=== PATIENT | female | born 1940 | race Caucasian/White ===

== ENCOUNTER 2017-01-09 15:44 | Inpatient (IN) | payer MEDICARE, OTHER ==
[2017-01-09] MEDS ORDERED: Ondansetron INJ* 2 MG/ML VIAL IV ONE ×2 (16:39→18:42)
[2017-01-09] MEDS ORDERED: Pantoprazole IV* 40 MG IV ONE (16:39)
[2017-01-09] MEDS: NS 0.9% 1000 ML* 2,000 ML IV ONE ×2 (16:57→18:38)
[2017-01-09 17:15] LABS: Hematocrit 43 % (35-47); Hemoglobin 14.2 g/dl (12.0-16.0); Mean Corpuscular HGB Conc 33 g/dl (31-36); Mean Corpuscular Hemoglobin 30 pg (27-31); Mean Corpuscular Volume 93 fL (80-97); Mean Platelet Volume 10 um3 (7.4-10.4); Red Blood Count 4.65 10^6/ul (4.0-5.4); Red Cell Distribution Width 14 % (10.5-15); White Blood Count 8.7 10^3/ul (3.5-10.8)
--- NOTE | 2017-01-09 17:31 | RAD ---
Indication: Epigastric pain, chest pain and vomiting. Single frontal view of the chest performed at 1708 hours was reviewed. Comparison is made with previous exam dated June 04, 2016. No mediastinal shift is noted. Heart is likely enlarged. There is some minimal right basilar atelectasis likely secondary to poor inspiration. Lung hernandes appear clear. IMPRESSION: NO ACTIVE CARDIOPULMONARY DISEASE IS NOTED. LIKELY CARDIOMEGALY IS NOTED.
[2017-01-09 17:33] LABS: Albumin 4.7 g/dL (3.2-5.2); BUN/Creatinine Ratio 19.6 (8-20); C Reactive Protein 1.96 mg/L (< 5.00); Calcium 10.1 mg/dL (8.6-10.3); EGFR African American 67.8 (>60); EGFR Non-African American 52.7 (>60); Globulin 2.7 g/dL (2-4); Magnesium 2.1 mg/dL (1.9-2.7); Total Bilirubin 0.4 mg/dL (0.2-1.0); Total Protein 7.4 g/dL (6.4-8.9)
[2017-01-09] MEDS ORDERED: Iodixanol* (CONTRAST) 320 MG/ML 100 ML SDV IV ONE (17:50)
[2017-01-09 18:10] LABS: TSH (Thyroid Stimulating Horm) 2.3 mcIU/mL (0.34-5.60)
[2017-01-09] MEDS ORDERED: Ondansetron INJ* 2 MG/ML VIAL ONE (18:42)
--- NOTE | 2017-01-09 19:28 | RAD ---
Indication: Epigastric pain, positive d-dimer. Contrast: Administered 100.1 ml of VISAPAQUE 320 mgi/ml. CTA of the chest was performed after IV contrast administration. CTA of the abdomen and pelvis was performed after IV contrast administration. Patient could not tolerate a full dose of oral contrast. The pulmonary arterial tree is well opacified. There are no filling defects present to suggest pulmonary embolus. There is no mediastinal or hilar adenopathy. Inferior thyroid lobes are unremarkable. The trachea and major bronchi appear patent. The lung hernandes demonstrate no evidence of alveolar consolidation. CT of the abdomen and pelvis was performed. Liver is normal in size. No focal lesions or intrahepatic duct dilatation noted. The gallbladder is distended however no pericholecystic fluid or wall thickening is identified. No evidence of calcified gallstones are noted. Pancreas demonstrates no mass or pancreatic duct dilatation. The spleen is normal in size. No adrenal lesions are noted. The kidneys demonstrate symmetric nephrograms without evidence of hydronephrosis. The urinary bladder is otherwise unremarkable. Aorta and inferior vena cava are unremarkable. Atherosclerosis is noted of the abdominal aorta. CT of the pelvis demonstrates no retroperitoneal or pelvic lymphadenopathy. The colon is filled with stool. Diverticulosis without evidence of diverticulitis is noted. The patient appears to be status post hysterectomy. No hernias are noted. Small bowel loops do not appear to be abnormally dilated. No hernias are noted. IMPRESSION: NO EVIDENCE OF PULMONARY EMBOLUS IS NOTED. THERE IS A DISTENDED GALLBLADDER HOWEVER NO CALCIFIED GALLSTONES, WALL THICKENING OR PERICHOLECYSTIC FLUID IS NOTED. SMALL BOWEL DEMONSTRATES NO EVIDENCE OF ABNORMAL DILATATION. NO OTHER MASSES OR FLUID COLLECTIONS ARE NOTED..
[2017-01-09] MEDS ORDERED: Aspirin Low Dose CHEW TAB* 81 MG PO ONE (19:49)
--- NOTE | 2017-01-09 20:06 | ED ---
Juvencio Monaco Billy, scribed for Daniel Edwards MD on 01/09/17 at 1630 . HPI Chest Pain - HPI Summary HPI Summary: Patient is a 76 year-old female coming to [facility] presenting with constant chest pain starting at 1500 today. She states that the pain is in the lower, mid- sternal region of the chest and radiates to the mid-back. She was at rest during onset. Pain severity 8/10. She reports feeling SOB, diaphoretic, and nauseated. Denies any recent illness. - History of Current Complaint Chief Complaint: EDChestPainROMI Time Seen by Provider: 01/09/17 16:20 Hx Obtained From: Patient Onset/Duration: Started Hours Ago, Still Present Time of Onset: 15:00 Timing: Constant Initial Severity: Moderate Current Severity: Moderate Pain Intensity: 8 Pain Scale Used: 0-10 Numeric Chest Pain Location: Mid Sternal Chest Pain Radiates: Yes Chest Pain Radiates To:: Back Aggravating Factor(s): Nothing Alleviating Factor(s): Nothing Associated Signs and Symptoms: Positive: Chest Pain, Shortness of Breath, Diaphoresis, Nausea - Allergy/Home Medications Allergies/Adverse Reactions: Allergies Allergy/AdvReac Type Severity Reaction Status Date / Time No Known Allergies Allergy Verified 02/26/15 17:30 PMH/Surg Hx/FS Hx/Imm Hx Endocrine/Hematology History: Denies: Hx Diabetes Cardiovascular History: Denies: Hx Congestive Heart Failure, Hx Hypertension GI History: Reports: Other GI Disorders - celiac disease History: Denies: Hx Renal Disease - Surgical History Surgery Procedure, Year, and Place: hysterrectomy - Immunization History Date of Tetanus Vaccine: Unknown Infectious Disease History: No Infectious Disease History: Reports: 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 (A?) Denies: Hx Clostridium Difficile, Hx Hepatitis, Hx of Known/Suspected MRSA, Hx Shingles, Hx Tuberculosis, Hx Known/Suspected VRE, Hx Known/Suspected VRSA, History Other Infectious Disease, Traveled Outside the [place] in Last 30 Days - Family History Family History: FHx of liver cancer - Father - Social History Alcohol Use: None Substance Use Type: Reports: None Smoking Status (MU): Never Smoked Tobacco Review of Systems Positive: Skin Diaphoresis Positive: Chest Pain Positive: Shortness Of Breath Positive: Nausea All Other Systems Reviewed And Are Negative: Yes Physical Exam Triage Information Reviewed: Yes Vital Signs On Initial Exam: Initial Vitals Temp Pulse Resp BP Pulse Ox 97.5 F 83 18 170/86 96 01/09/17 15:45 01/09/17 15:45 01/09/17 15:45 01/09/17 15:45 01/09/17 15:45 Vital Signs Reviewed: Yes Appearance: Positive: Ill-Appearing - mild Skin: Positive: Warm, Dry, Pale Head/Face: Positive: Normal Head/Face Inspection Eyes: Positive: EOMI, SANTOS Neck: Positive: Supple, Nontender Respiratory/Lung Sounds: Positive: Clear to Auscultation, Breath Sounds Present Cardiovascular: Positive: RRR Abdomen Description: Positive: Soft, Other: - tender epigastrium Bowel Sounds: Positive: Hypoactive Musculoskeletal: Positive: Normal, Strength/ROM Intact Neurological: Positive: Normal, Sensory/Motor Intact, Alert, Oriented to Person Place, Time Psychiatric: Positive: Affect/Mood Appropriate Diagnostics - Vital Signs Vital Signs Temp Pulse Resp BP Pulse Ox 01/09/17 15:45 97.5 F 83 18 170/86 96 - Laboratory Lab Results: Lab Results 01/09/17 01/09/17 01/09/17 Range/Units 17:00 17:00 17:00 WBC 8.7 (3.5-10.8) 10^3/ul RBC 4.65 (4.0-5.4) 10^6/ul Hgb 14.2 (12.0-16.0) g/dl Hct 43 (35-47) % MCV 93 (80-97) fL MCH 30 (27-31) pg MCHC 33 (31-36) g/dl RDW 14 (10.5-15) % Plt Count 196 (150-450) 10^3/ul MPV 10 (7.4-10.4) um3 Neut % (Auto) 70.3 (38-83) % Lymph % (Auto) 21.1 L (25-47) % [place] % (Auto) 7.8 (1-9) % Eos % (Auto) 0.3 (0-6) % Baso % (Auto) 0.5 (0-2) % Absolute Neuts (auto) 6.1 (1.5-7.7) 10^3/ul Absolute Lymphs (auto) 1.8 (1.0-4.8) 10^3/ul Absolute Monos (auto) 0.7 (0-0.8) 10^3/ul Absolute Eos (auto) 0 (0-0.6) 10^3/ul Absolute Basos (auto) 0 (0-0.2) 10^3/ul Absolute Nucleated RBC 0 10^3/ul Nucleated RBC % 0 INR (Anticoag Therapy) 0.87 L (0.89-1.11) APTT 25.3 L (26.0-36.3) seconds D-Dimer, Quantitative 372 H (Less Than 230) ng/mL Sodium 136 (133-145) mmol/L Potassium 4.0 (3.5-5.0) mmol/L Chloride 102 (101-111) mmol/L Carbon Dioxide 26 (22-32) mmol/L Anion Gap 8 (2-11) mmol/L BUN 20 (6-24) mg/dL Creatinine 1.02 H (0.51-0.95) mg/dL Est GFR ( Amer) 67.8 (>60) Est GFR (Non-Af Amer) 52.7 (>60) BUN/Creatinine Ratio 19.6 (8-20) Glucose 162 H (70-100) mg/dL Lactic Acid (0.5-2.0) mmol/L Calcium 10.1 (8.6-10.3) mg/dL Magnesium 2.1 (1.9-2.7) mg/dL Total Bilirubin 0.40 (0.2-1.0) mg/dL AST 16 (13-39) U/L ALT 10 (7-52) U/L Alkaline Phosphatase 79 (34-104) U/L Total Creatine Kinase 33 (10-223) U/L CK-MB (CK-2) 1.2 (0.6-6.3) ng/mL Troponin I 0.00 (<0.04) ng/mL C-Reactive Protein 1.96 (< 5.00) mg/L B-Natriuretic Peptide ( - 100) pg/mL Total Protein 7.4 (6.4-8.9) g/dL Albumin 4.7 (3.2-5.2) g/dL Globulin 2.7 (2-4) g/dL Albumin/Globulin Ratio 1.7 (1-3) Lipase 26 (11.0-82.0) U/L TSH 2.30 (0.34-5.60) mcIU/mL 01/09/17 01/09/17 Range/Units 17:00 17:00 WBC (3.5-10.8) 10^3/ul RBC (4.0-5.4) 10^6/ul Hgb (12.0-16.0) g/dl Hct (35-47) % MCV (80-97) fL MCH (27-31) pg MCHC (31-36) g/dl RDW (10.5-15) % Plt Count (150-450) 10^3/ul MPV (7.4-10.4) um3 Neut % (Auto) (38-83) % Lymph % (Auto) (25-47) % [place] % (Auto) (1-9) % Eos % (Auto) (0-6) % Baso % (Auto) (0-2) % Absolute Neuts (auto) (1.5-7.7) 10^3/ul Absolute Lymphs (auto) (1.0-4.8) 10^3/ul Absolute Monos (auto) (0-0.8) 10^3/ul Absolute Eos (auto) (0-0.6) 10^3/ul Absolute Basos (auto) (0-0.2) 10^3/ul Absolute Nucleated RBC 10^3/ul Nucleated RBC % INR (Anticoag Therapy) (0.89-1.11) APTT (26.0-36.3) seconds D-Dimer, Quantitative (Less Than 230) ng/mL Sodium (133-145) mmol/L Potassium (3.5-5.0) mmol/L Chloride (101-111) mmol/L Carbon Dioxide (22-32) mmol/L Anion Gap (2-11) mmol/L BUN (6-24) mg/dL Creatinine (0.51-0.95) mg/dL Est GFR ( Amer) (>60) Est GFR (Non-Af Amer) (>60) BUN/Creatinine Ratio (8-20) Glucose (70-100) mg/dL Lactic Acid 2.2 H* (0.5-2.0) mmol/L Calcium (8.6-10.3) mg/dL Magnesium (1.9-2.7) mg/dL Total Bilirubin (0.2-1.0) mg/dL AST (13-39) U/L ALT (7-52) U/L Alkaline Phosphatase (34-104) U/L Total Creatine Kinase (10-223) U/L CK-MB (CK-2) (0.6-6.3) ng/mL Troponin I (<0.04) ng/mL C-Reactive Protein (< 5.00) mg/L B-Natriuretic Peptide 107 H ( - 100) pg/mL Total Protein (6.4-8.9) g/dL Albumin (3.2-5.2) g/dL Globulin (2-4) g/dL Albumin/Globulin Ratio (1-3) Lipase (11.0-82.0) U/L TSH (0.34-5.60) mcIU/mL Result Diagrams: 01/09/17 17:00 01/09/17 17:00 Lab Statement: Any lab studies that have been ordered have been reviewed, and results considered in the medical decision making process. - Radiology CXR Radiology Interpretation Completed By: Radiologist - NO ACTIVE CARDIOPULMONARY DISEASE IS NOTED. LIKELY CARDIOMEGALY IS NOTED. - CT CTA chest/abd/pel CT Interpretation Completed By: Radiologist - NO EVIDENCE OF PULMONARY EMBOLUS IS NOTED. THERE IS A DISTENDED GALLBLADDER HOWEVER NO CALCIFIED GALLSTONES, WALL THICKENING OR PERICHOLECYSTIC FLUID IS NOTED. SMALL BOWEL DEMONSTRATES NO EVIDENCE OF ABNORMAL DILATATION. NO OTHER MASSES OR FLUID COLLECTIONS ARE NOTED. - EKG 1550 EKG Interpretation: NSR 75 bpm, nml ST, no ectopy, borderline LAD Re-Evaluation - Re-Evaluation First Eval Re-Evaluation Time: 19:47 Comment: Labs and imaging reviewed. Discussed plan for further imaging gallbladder ultrasound, and plan for admission. Chest Pain Course/Dx - Course Assessment/Plan: PAIN IMPROVED INED. ADMIT HOSPITALIST STABLE. - Diagnoses Provider Diagnoses: Chest pain, Epigastric abdominal pain - Provider Notifications Discussed Care Of Patient With: Dr. Hodge (hospitalist) @ 1999: accepts admission. Discharge - Discharge Plan Condition: Stable Disposition: ADMITTED TO [facility] Referrals: Ryann Horton MD [Primary Care Provider] - The documentation as recorded by the Juvencio newberry Billy accurately reflects the service I personally performed and the decisions made by me, Daniel Edwards MD.
[2017-01-09] MEDS ORDERED: Morphine INJ* 2 MG/ML 1 ML SYRINGE IV PRN (20:26)
[2017-01-09 20:34] LABS: Urine Bacteria Absent (Absent); Urine Bilirubin Negative (Negative); Urine Glucose 1+(50 mg/dL) (Negative); Urine Nitrite Negative (Negative)
--- NOTE | 2017-01-09 20:59 | RAD ---
Indication: Epigastric, chest pain. Real-time sonography of the right upper colon was performed. Liver is limited in evaluation due to body habitus. No definite focal lesions are noted. The gallbladder demonstrates no gallstones although is limited in evaluation. The common duct could not BE obtained. The right kidney measures 10.7 x 5.4 x 4.6 cm. Pancreas head, neck and proximal body demonstrates no mass or pancreatic ductal dilatation. The aorta and inferior vena cava are unremarkable. IMPRESSION: No definite cholelithiasis is noted. Limited evaluation of the liver. The study is limited due to body habitus.
[2017-01-09] MEDS: Heparin VIAL(*) 5000 UNITS/ML VIAL (FIVE THOUSAND) SUBCUT SCH (23:27)
[2017-01-09] MEDS: NS 0.9% 1000 ML* 1,000 ML IV SCH (23:29)
[2017-01-10] MEDS: Heparin VIAL(*) 5000 UNITS/ML VIAL (FIVE THOUSAND) SUBCUT SCH ×3 (06:07→21:11)
[2017-01-10 07:24] LABS: HDL Cholesterol 39.9 mg/dL
--- NOTE | 2017-01-10 08:05 | HP ---
HISTORY AND PHYSICAL: DATE OF ADMISSION: 01/09/17 CHIEF COMPLAINT: Epigastric pain. HISTORY OF PRESENT ILLNESS: The patient is a 76-year-old woman who presents to [facility] with a chief complaint of epigastric pain. This pain seems to radiate into her back as well. She has had nausea and vomiting as well , but no fevers or chills. She was folding clothes when it started out of nowhere. It is different than her usual heartburn. She says it is stronger and more rugged. She took Jahaira-Elbert for it with little relief. It is a heavy type of a pain. She denies being short of breath, but her significant other felt that she looked like she was short of breath. She has no palpitations. She denies any . It was 8/10 in severity at its worse. PAST MEDICAL HISTORY: Significant for celiac disease; duodenal stenosis, status post dilatation. PAST SURGICAL HISTORY: Significant for hysterectomy. CURRENT MEDICATIONS: Eye drops. ALLERGIES: She has no known drug allergies. FAMILY HISTORY: Mother at 84 of old age. Father at 89 of heart problems. SOCIAL HISTORY: No tobacco, no alcohol, or recreational drug use. 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 She has a significant other for 2 years. She is a , who was for 54 years. She has 3 children. Her daughter, Nesha Avalos, is her healthcare proxy. REVIEW OF SYSTEMS: A 14-point review of systems was completed with the patient. All pertinent positives and negatives are in the history of present illness, otherwise negative. PHYSICAL EXAMINATION GENERAL: A pleasant woman lying in bed, in no acute distress. VITAL SIGNS: Temperature 98.1 degrees, heart rate 98 beats per minute, respiratory rate 16 breaths per minute, pulse ox 98% on room air, and blood pressure 137/38. HEENT: Normocephalic, atraumatic. Pupils are equal, round, and reactive to light. Moist mucous membranes. NECK: Supple. No JVD, bruits, palpable thyroid, or lymphadenopathy. CHEST: Clear to auscultation and percussion bilaterally. CARDIOVASCULAR: S1, S2 appreciated. ABDOMEN: Positive bowel sounds in all 4 quadrants. Soft and nontender. EXTREMITIES: No cyanosis, clubbing, or edema. +2 peripheral pulses bilaterally. NEURO: Alert and oriented x3. Moves all extremities. SKIN: No rashes or abnormalities. DIAGNOSTIC STUDIES/LAB DATA: White count 8.7, hemoglobin 14.2, hematocrit 43, and platelets 196. Sodium 136, potassium 4.0, chloride 102, CO2 26, BUN 20, creatinine 1.02, glucose 162, and lactic acid 2.2. Troponin was 0.00. AST is 16 and ALT is 10. INR is 0.87. D-dimer 372. Urinalysis has +3 rbc's. Chest x-ray showed no active cardiopulmonary disease noted, likely cardiomegaly is noted. CTA of the chest and abdomen was reviewed by Radiology. No evidence of pulmonary embolus was noted. There was distended gallbladder; however, no calcified gallstones, wall thickening, or pericholecystic fluid is noted. Small bowel demonstrates no evidence of abnormal dilatation. No other masses or fluid collections are noted. Gallbladder ultrasound was interpreted by Radiology as no definitive cholelithiasis is noted. Limited evaluation of liver, the study is limited to body habitus. EKG shows normal sinus rhythm at 75 beats per minute, left axis deviation, left anterior hemiblock, no acute ST-T wave changes. ASSESSMENT AND PLAN: 1. Epigastric/chest pain: I do not think this is cardiac in nature and I do think it is more of a gastrointestinal problem. It is difficult to assess at this point. I will cycle her troponins and place her on telemetry. She may benefit from Gastroenterology consult. She has a history of duodenal stenosis, but nothing is evident on the CAT scan at this time. It could be even her celiac disease as well. We will hydrate her and see how she does overnight and if she improves, may get GI to see. 2. Hypertension: Monitor blood pressure and medicate accordingly. 3. FEN: NPO. Normal saline at 100 cc an hour. 4. DVT prophylaxis: Heparin subcu. 5. The patient is a full code. TIME SPENT: Over 75 minutes was spent on this H and P; more than 40 minutes of which was spent in direct [id number] contact with the patient in evaluation, physical exam, counseling, and coordination of care. CC: Dr. Ryann Horton* [id number]/[facility] #: [id number] [facility]
[2017-01-10] MEDS ORDERED: Pneumococcal Vac Polyvalent* 0.5 ML VIAL IM ONE (09:00)
[2017-01-10] MEDS: NS 0.9% 1000 ML* 1,000 ML IV SCH ×2 (09:55→21:11)
--- NOTE | 2017-01-10 11:42 | PN ---
Subjective Date of Service: 01/10/17 Interval History: Patient seen and examined at bedside. She reports improvement in epigastric pain this AM and feels that it is not cardiac. She still has epigastric and abdominal tenderness. Nausea has improved, denies diarrhea. Last normal BM yesterday. Denies SOB. No fever/chills. She has been followed by Dr. Madison and Dr. To of [place]. Records requested from Dr. To, who has performed dilatation for duodenal stenosis. Family History: Unchanged from Admission Social History: Unchanged from Admission Past Medical History: Unchanged from Admission Objective Active Medications: Acetaminophen (Tylenol Tab*) 650 mg PO Q6H PRN PRN Reason: PAIN Heparin Sodium (Porcine) (Heparin Vial(*)) 5,000 units SUBCUT Q8HR [facility] Last Admin: 01/10/17 06:07 Dose: 5,000 units Sodium Chloride (Ns 0.9% 1000 Ml*) 1,000 mls @ 100 mls/hr IV PER RATE [facility] Last Admin: 01/10/17 09:55 Dose: 100 mls/hr Morphine Sulfate (Morphine Inj (Syringe)*) 2 mg IV Q2H PRN PRN Reason: PAIN Ondansetron HCl (Zofran Inj*) 4 mg IV Q4H PRN PRN Reason: NAUSEA Pantoprazole Sodium (Protonix Iv*) 40 mg IV Q24H [facility] Vital Signs 01/09/17 01/09/17 01/09/17 21:50 21:53 22:00 Temperature Pulse Rate 90 90 Respiratory 19 18 Rate Blood Pressure 148/84 155/75 (mmHg) O2 Sat by Pulse 95 97 Oximetry 01/09/17 01/09/17 01/09/17 22:14 22:35 23:47 Temperature 97.6 F 98.1 F Pulse Rate 98 Respiratory 16 16 Rate Blood Pressure 137/38 (mmHg) O2 Sat by Pulse 98 Oximetry 01/10/17 01/10/17 01:03 04:25 Temperature 97.9 F 98.4 F Pulse Rate 84 85 Respiratory 16 16 Rate Blood Pressure 134/62 141/72 (mmHg) O2 Sat by Pulse 95 93 Oximetry Oxygen Devices in Use Now: None Appearance: Mildly ill appearing female, lying in bed, in NAD Eyes: PERRLA Ears/Nose/Mouth/Throat: Clear Oropharnyx, Mucous Membranes Moist Neck: NL Appearance and Movements; NL JVP Respiratory: Symmetrical Chest Expansion and Respiratory Effort, Clear to Auscultation Cardiovascular: NL Sounds; No Murmurs; No JVD, RRR Abdominal: - - epigastric tenderness and diffuse abd tenderness with palpation, no rebound, BS x 4 Extremities: No Edema Skin: No Rash or Ulcers Neurological: Alert and Oriented x 3 Lines/Tubes/Other Access: Clean, Dry and Intact Peripheral IV Nutrition: - Result Diagrams: 01/10/17 16:32 01/10/17 16:27 Additional Lab and Data: Lab Results 01/09/17 01/09/17 01/09/17 Range/Units 17:00 17:00 17:00 WBC 8.7 (3.5-10.8) 10^3/ul RBC 4.65 (4.0-5.4) 10^6/ul Hgb 14.2 (12.0-16.0) g/dl Hct 43 (35-47) % MCV 93 (80-97) fL MCH 30 (27-31) pg MCHC 33 (31-36) g/dl RDW 14 (10.5-15) % Plt Count 196 (150-450) 10^3/ul MPV 10 (7.4-10.4) um3 Neut % (Auto) 70.3 (38-83) % Lymph % (Auto) 21.1 L (25-47) % [place] % (Auto) 7.8 (1-9) % Eos % (Auto) 0.3 (0-6) % Baso % (Auto) 0.5 (0-2) % Absolute Neuts (auto) 6.1 (1.5-7.7) 10^3/ul Absolute Lymphs (auto) 1.8 (1.0-4.8) 10^3/ul Absolute Monos (auto) 0.7 (0-0.8) 10^3/ul Absolute Eos (auto) 0 (0-0.6) 10^3/ul Absolute Basos (auto) 0 (0-0.2) 10^3/ul Absolute Nucleated RBC 0 10^3/ul Nucleated RBC % 0 INR (Anticoag Therapy) 0.87 L (0.89-1.11) APTT 25.3 L (26.0-36.3) seconds D-Dimer, Quantitative 372 H (Less Than 230) ng/mL Sodium 136 (133-145) mmol/L Potassium 4.0 (3.5-5.0) mmol/L Chloride 102 (101-111) mmol/L Carbon Dioxide 26 (22-32) mmol/L Anion Gap 8 (2-11) mmol/L BUN 20 (6-24) mg/dL Creatinine 1.02 H (0.51-0.95) mg/dL Est GFR ( Amer) 67.8 (>60) Est GFR (Non-Af Amer) 52.7 (>60) BUN/Creatinine Ratio 19.6 (8-20) Glucose 162 H (70-100) mg/dL Lactic Acid (0.5-2.0) mmol/L Calcium 10.1 (8.6-10.3) mg/dL Magnesium 2.1 (1.9-2.7) mg/dL Total Bilirubin 0.40 (0.2-1.0) mg/dL AST 16 (13-39) U/L ALT 10 (7-52) U/L Alkaline Phosphatase 79 (34-104) U/L Total Creatine Kinase 33 (10-223) U/L CK-MB (CK-2) 1.2 (0.6-6.3) ng/mL Troponin I 0.00 (<0.04) ng/mL C-Reactive Protein 1.96 (< 5.00) mg/L B-Natriuretic Peptide ( - 100) pg/mL Total Protein 7.4 (6.4-8.9) g/dL Albumin 4.7 (3.2-5.2) g/dL Globulin 2.7 (2-4) g/dL Albumin/Globulin Ratio 1.7 (1-3) Lipase 26 (11.0-82.0) U/L TSH 2.30 (0.34-5.60) mcIU/mL 01/09/17 01/09/17 Range/Units 17:00 17:00 WBC (3.5-10.8) 10^3/ul RBC (4.0-5.4) 10^6/ul Hgb (12.0-16.0) g/dl Hct (35-47) % MCV (80-97) fL MCH (27-31) pg MCHC (31-36) g/dl RDW (10.5-15) % Plt Count (150-450) 10^3/ul MPV (7.4-10.4) um3 Neut % (Auto) (38-83) % Lymph % (Auto) (25-47) % [place] % (Auto) (1-9) % Eos % (Auto) (0-6) % Baso % (Auto) (0-2) % Absolute Neuts (auto) (1.5-7.7) 10^3/ul Absolute Lymphs (auto) (1.0-4.8) 10^3/ul Absolute Monos (auto) (0-0.8) 10^3/ul Absolute Eos (auto) (0-0.6) 10^3/ul Absolute Basos (auto) (0-0.2) 10^3/ul Absolute Nucleated RBC 10^3/ul Nucleated RBC % INR (Anticoag Therapy) (0.89-1.11) APTT (26.0-36.3) seconds D-Dimer, Quantitative (Less Than 230) ng/mL Sodium (133-145) mmol/L Potassium (3.5-5.0) mmol/L Chloride (101-111) mmol/L Carbon Dioxide (22-32) mmol/L Anion Gap (2-11) mmol/L BUN (6-24) mg/dL Creatinine (0.51-0.95) mg/dL Est GFR ( Amer) (>60) Est GFR (Non-Af Amer) (>60) BUN/Creatinine Ratio (8-20) Glucose (70-100) mg/dL Lactic Acid 2.2 H* (0.5-2.0) mmol/L Calcium (8.6-10.3) mg/dL Magnesium (1.9-2.7) mg/dL Total Bilirubin (0.2-1.0) mg/dL AST (13-39) U/L ALT (7-52) U/L Alkaline Phosphatase (34-104) U/L Total Creatine Kinase (10-223) U/L CK-MB (CK-2) (0.6-6.3) ng/mL Troponin I (<0.04) ng/mL C-Reactive Protein (< 5.00) mg/L B-Natriuretic Peptide 107 H ( - 100) pg/mL Total Protein (6.4-8.9) g/dL Albumin (3.2-5.2) g/dL Globulin (2-4) g/dL Albumin/Globulin Ratio (1-3) Lipase (11.0-82.0) U/L TSH (0.34-5.60) mcIU/mL Assess/Plan/Problems-Billing Assessment: Ms. John is a 76 yo female with a PMH of celiac disease and duodenal stenosis who presented to the ED on 01/09 with concern for epigastric pain and n/ v. - Patient Problems (1) Epigastric pain Code(s): R10.13 - EPIGASTRIC PAIN Comment: With epigastric pain, diffuse abd tenderness, nausea. Last regular BM yesterday. Troponins negative. No ischemic changes noted to EKG. CTA negative for PE. Afebrile, no leukocytosis. CTA and gallbladder scan with no definitive findings. She reports episodes of recurrent n/v every 3-4 months, though pain this time is abnormal. Follows celiac diet. Records requested from Dr. To at [place]. Appreciate GI input. (2) Duodenal stenosis Code(s): K31.5 - OBSTRUCTION OF DUODENUM Comment: s/p dilatation. Records requested from [place]. Continue outpatient f/u. (3) Celiac disease Code(s): K90.0 - CELIAC DISEASE Comment: Resume gluten free diet when able to take PO. (4) DVT prophylaxis Code(s): AWR7678 - Comment: SQ heparin Status and Disposition: Inpatient admission. Anticipate LOS >2 days.
[2017-01-10] MEDS: Ondansetron INJ* 2 MG/ML VIAL IV PRN ×2 (12:24→23:42)
[2017-01-10] MEDS: Acetaminophen TAB* 325 MG PO PRN ×2 (14:04→23:42)
[2017-01-10] MEDS: Pantoprazole IV* 40 MG IV SCH (16:20)
[2017-01-10 16:40] LABS: Add Diff/Slide Review? Slide Review Added; Comments Flag Yes; Hematocrit 40 % (35-47); Hemoglobin 13.2 g/dl (12.0-16.0); Mean Corpuscular HGB Conc 33 g/dl (31-36); Mean Corpuscular Hemoglobin 31 pg (27-31); Mean Corpuscular Volume 92 fL (80-97); Mean Platelet Volume 10 um3 (7.4-10.4); Red Blood Count 4.32 10^6/ul (4.0-5.4); Red Cell Distribution Width 14 % (10.5-15); White Blood Count 15.6 10^3/ul (3.5-10.8)
[2017-01-10 16:54] LABS: BUN/Creatinine Ratio 15.9 (8-20); C Reactive Protein 29.19 mg/L (< 5.00); Calcium 9.4 mg/dL (8.6-10.3); EGFR African American 80.3 (>60); EGFR Non-African American 62.5 (>60); Potassium 3.7 mmol/L (3.5-5.0)
[2017-01-10 16:56] LABS: Troponin I 0.01 ng/mL (<0.04)
[2017-01-10] MEDS ORDERED: Al Hydrox/Mg Hydrox/Simet LIQ* 30 ML UDC PO ONE (17:31)
[2017-01-10] MEDS ORDERED: Lidocaine 2% VISCOUS* 15 ML UDC PO ONE (17:31)
--- NOTE | 2017-01-10 19:16 | PN ---
Hospitalist Progress Note Patient with recurrent episode of acute pain. WBC and CRP increased, but pt afebrile. Repeat labs in AM. Troponin 0.01 and no ischemic changes noted to EKG. Continue NPO status and supportive care. Will try GI cocktail. GI consult pending.
[2017-01-10] MEDS ORDERED: hydrALAZINE IV* 20 MG/ML VIAL IV SLOW PU PRN (19:18)
--- NOTE | 2017-01-11 00:54 | CONS ---
CONSULTATION REPORT: DATE OF CONSULT: 01/10/17 REASON FOR CONSULTATION: Abdominal pain, back pain, nausea and vomiting for 24 hours. NARRATIVE: Mr. John is a 76-year-old woman with a history of celiac disease, duodenal stenosis, status post recent dilation who presents with sudden onset of back pain, abdominal pain, nausea and vomiting. The patient has a longstanding history of celiac disease and has been on a gluten free diet for many years. Interestingly, she has had repeated episodes of nausea and vomiting perhaps occurring every 3 to 4 months in the last several years. She has required emergency room visits for hydration. Etiology for this has not been completely elucidated. 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 It was felt to be benign. Here locally, she underwent balloon dilation of the stenosis in 2011 and apparently did well for a period of time. More recently due to recurrence of her nausea and vomiting, she underwent an attempted repeated endoscopy about 2 months ago, which could not be completed due to a pretty profound duodenal stenosis. She then was referred for dilation therapy. This was performed on 12/13/16 and a second dilation on 12/28/16 where the duodenum was dilated up to approximately 12 mm. Biopsies at that site showed duodenitis. She thought her nausea and vomiting improved, but quite suddenly yesterday developed rapid onset of abdominal pain radiating into the back associated with recurrent episodes of nausea and vomiting. She presented to our emergency room where she was hemodynamically stable. Initial data included a normal CBC, liver panel and lipase. She underwent a CT scan of the abdomen and chest, CTA protocol, which showed no pulmonary embolus, but did demonstrate a very distended gallbladder, but no calcified gallstones and no other GI lesion. Gallbladder ultrasound was performed, which was limited due to her body habitus, but did not show any cholelithiasis. She thought she was doing better this morning but upon later in the day, she has had recurrence of back pain radiating to the front associated with vomiting. She has had no GI bleeding, dysphagia, diarrhea. She has had no fevers, chills or jaundice. Approximately 2 hours prior to the onset of these symptoms, she had banana bread and a sandwich. She has taken a small amount of NSAIDs due to pain but not on a regular basis. She does not take any prescription medicines on a regular basis. PAST MEDICAL HISTORY: Again includes celiac disease, duodenal stenosis as described above. PAST SURGICAL HISTORY: Hysterectomy. FAMILY HISTORY: Negative for GI malignancies, peptic ulcer disease. REVIEW OF SYSTEMS: Weight has been stable. She denies any dysphagia. She denies any exertional chest pain, breathing difficulties. PHYSICAL EXAM: The patient is somewhat sleepy as she has recently received pain medicines, but coherent. She is anicteric. Her temperature is 98 degrees. Skin exam reveals no lesions. Lungs are clear. Cardiac exam reveals a regular rhythm without murmur. Abdomen is soft. There is some perhaps minimal tenderness in the epigastrium. There is rebound, guarding. Bowel sounds are hypoactive but present. There is no organomegaly and there is no Mendoza sign. DIAGNOSTIC STUDIES/LAB DATA: Total bilirubin of 0.4, white count of 8.7 that has risen to 15.6 today. IMPRESSION: This 76-year-old woman with a background history of celiac disease as well as duodenal stenosis with a chronic recurrent episodes of nausea and vomiting who now presents with pain radiating into the back associated with nausea and vomiting. Her current presentation is not similar to her previous episodes of nausea and vomiting as it is associated with pretty severe pain. This makes me believe that perhaps we are dealing with another process at this point. She is 2 weeks from duodenal dilation and certainly complications are plausible although this is quite far out and the CT scan shows no evidence of perforation. There may be some inflammatory change in that region and indeed she had duodenitis on biopsies. The radiation to the back may imply biliary disease. I am going to order a HIDA scan. I would recommend empiric PPI therapy. If her symptoms persist and no clear cut etiology is identified, I would likely followup with an upper endoscopy to reevaluate the area of stenosis. CC: Dr. Ryann Horton; Dr. Sabiha Madison* [id number]/[facility] #: [id number] [facility] HOSPITALMiki
[2017-01-11] MEDS: Heparin VIAL(*) 5000 UNITS/ML VIAL (FIVE THOUSAND) SUBCUT SCH ×3 (05:19→20:58)
[2017-01-11 06:09] LABS: Hematocrit 35 % (35-47); Hemoglobin 11.6 g/dl (12.0-16.0); Mean Corpuscular HGB Conc 33 g/dl (31-36); Mean Corpuscular Hemoglobin 31 pg (27-31); Mean Corpuscular Volume 92 fL (80-97); Mean Platelet Volume 10 um3 (7.4-10.4); Red Blood Count 3.82 10^6/ul (4.0-5.4); Red Cell Distribution Width 14 % (10.5-15); White Blood Count 14.2 10^3/ul (3.5-10.8)
[2017-01-11 06:27] LABS: BUN/Creatinine Ratio 13.9 (8-20); Calcium 9.1 mg/dL (8.6-10.3); EGFR African American 68.5 (>60); EGFR Non-African American 53.3 (>60); Potassium 3.7 mmol/L (3.5-5.0)
[2017-01-11] MEDS: NS 0.9% 1000 ML* 1,000 ML IV SCH ×2 (08:51→21:53)
--- NOTE | 2017-01-11 14:53 | RAD ---
Indication: Evaluate for cholecystitis. Hepatobiliary scan was performed after intravenous injection of 5.9 mCi of technetium 99m mebrofenin. There is uptake of the radiotracer by the hepatocytes. There is no evidence of excretion by the hepatocytes with no evidence of radionuclide in the left, right orbit common hepatic duct. There is no evidence of excretion into the small bowel. This is suggestive of hepatocellular failure such as hepatitis. IMPRESSION: No excretion of the radionuclide into the biliary system suggestive of hepatocellular failure.
[2017-01-11] MEDS: Ondansetron INJ* 2 MG/ML VIAL IV PRN (15:28)
[2017-01-11] MEDS: Pantoprazole IV* 40 MG IV SCH (16:43)
--- NOTE | 2017-01-11 16:59 | PN ---
Subjective Date of Service: 01/11/17 Interval History: Patient seen and examined at bedside. Pt denies fever, chills, shortness of breath, chest discomfort, V/D. Pt reports that she has not moved her bowels in 2 days. Pt and significant other report several years of symptoms similar symptoms with nausea and vomiting. She often gets dehydrated, passes out and goes to the ER where she received IV fluids and is discharged without a clear diagnosis. They report that the "chest pain" was new to this episode. Tele: Sinus rhythm, rate 60-70's. Family History: Unchanged from Admission Social History: Unchanged from Admission Past Medical History: Unchanged from Admission Objective Active Medications: Acetaminophen (Tylenol Tab*) 650 mg PO Q6H PRN Reason: PAIN Heparin Sodium (Porcine) (Heparin Vial(*)) 5,000 units SUBCUT Q8HR RIGO Hydralazine HCl (Apresoline Iv*) 5 mg IV SLOW PU Q6H PRN Reason: BLOOD PRESSURE Sodium Chloride (Ns 0.9% 1000 Ml*) 1,000 mls @ 100 mls/hr IV PER RATE RIGO Morphine Sulfate (Morphine Inj (Syringe)*) 2 mg IV Q2H PRN Reason: PAIN Ondansetron HCl (Zofran Inj*) 4 mg IV Q4H PRN Reason: NAUSEA Pantoprazole Sodium (Protonix Iv*) 40 mg IV Q24H [facility] Vital Signs 01/10/17 01/10/17 01/10/17 18:28 18:30 22:37 Temperature 98.1 F Pulse Rate 89 Respiratory 17 16 Rate Blood Pressure 156/77 156/77 (mmHg) O2 Sat by Pulse 92 Oximetry 01/11/17 01/11/17 01/11/17 00:25 04:29 07:30 Temperature 99.7 F 98.7 F 98.8 F Pulse Rate 94 85 77 Respiratory 16 16 18 Rate Blood Pressure 152/80 167/73 139/65 (mmHg) O2 Sat by Pulse 91 98 92 Oximetry 01/11/17 01/11/17 07:50 11:31 Temperature 98.6 F Pulse Rate 69 Respiratory 16 18 Rate Blood Pressure 151/66 (mmHg) O2 Sat by Pulse 93 Oximetry Oxygen Devices in Use Now: None Appearance: NAD, laying in bed Eyes: No Scleral Icterus, PERRLA Ears/Nose/Mouth/Throat: NL Teeth, Lips, Gums, Mucous Membranes Moist Neck: NL Appearance and Movements; NL JVP, Trachea Midline Respiratory: Symmetrical Chest Expansion and Respiratory Effort, Clear to Auscultation Cardiovascular: NL Sounds; No Murmurs; No JVD, RRR Abdominal: - - Diffuse tenderness with palpation, no guarding or rebound pain. Bowel sounds present x4. Extremities: No Edema Skin: No Rash or Ulcers Neurological: Alert and Oriented x 3, NL Muscle Strength and Tone Lines/Tubes/Other Access: Clean, Dry and Intact Peripheral IV - site benign Nutrition: Taking PO's Result Diagrams: 01/11/17 05:40 01/11/17 05:39 Additional Lab and Data: Assess/Plan/Problems-Billing Assessment: Ms. John is a 76 yo female with a PMH of celiac disease and duodenal stenosis who presented to the ED on 01/09 with concern for epigastric pain and n/ v. - Patient Problems (1) Epigastric pain Code(s): R10.13 - EPIGASTRIC PAIN SNOMED Code(s): 96710045 Comment: - With epigastric pain, diffuse abd tenderness, nausea. Last regular BM 2 days ago. - Troponins negative. No ischemic changes noted to EKG. CTA negative for PE. - Afebrile, no leukocytosis. CTA and gallbladder scan with no definitive findings. HIDA scan negative - She reports episodes of recurrent n/v every 3-4 months, though pain this time is abnormal. - Follows celiac diet. - Records requested from Dr. To at [place]. - Appreciate GI input. - Plan to discharge home on PPI (2) Duodenal stenosis Code(s): K31.5 - OBSTRUCTION OF DUODENUM SNOMED Code(s): 50142594 Comment: - s/p dilatation. - Records requested from [place]. - Continue outpatient f/u. (3) Celiac disease Code(s): K90.0 - CELIAC DISEASE SNOMED Code(s): 225967622 Comment: - Resume gluten free diet when able to take PO. (4) DVT prophylaxis Code(s): VWZ3217 - SNOMED Code(s): 717121352 Comment: - SQ heparin (5) DNR (do not resuscitate) Status and Disposition: Inpatient admission. Anticipate LOS >2 days. Discharge to home when medically stable.
[2017-01-12] MEDS: Heparin VIAL(*) 5000 UNITS/ML VIAL (FIVE THOUSAND) SUBCUT SCH ×2 (05:28→15:19)
[2017-01-12] MEDS ORDERED: Omeprazole CAP* 20 MG PO SCH (06:00)
[2017-01-12 06:13] LABS: Hematocrit 34 % (35-47); Hemoglobin 11.5 g/dl (12.0-16.0); Mean Corpuscular HGB Conc 33 g/dl (31-36); Mean Corpuscular Hemoglobin 31 pg (27-31); Mean Corpuscular Volume 92 fL (80-97); Mean Platelet Volume 10 um3 (7.4-10.4); Red Blood Count 3.72 10^6/ul (4.0-5.4); Red Cell Distribution Width 15 % (10.5-15); White Blood Count 10.4 10^3/ul (3.5-10.8)
[2017-01-12 06:31] LABS: BUN/Creatinine Ratio 15.7 (8-20); EGFR Non-African American 66.8 (>60); Potassium 3.5 mmol/L (3.5-5.0)
[2017-01-12] MEDS: NS 0.9% 1000 ML* 1,000 ML IV SCH (08:01)
--- NOTE | 2017-01-12 14:18 | PN ---
Subjective Date of Service: 01/12/17 Interval History: Patient seen and examined at bedside. Pt denies fever, chills, shortness of breath, chest discomfort, N/V/D. Pt would like to try and advance her diet. Tele: Sinus rhythm-Sinus arrhythmia, rate 60-80's. Pt noted to occasionally be tachy up to the 120's. Family History: Unchanged from Admission Social History: Unchanged from Admission Past Medical History: Unchanged from Admission Objective Active Medications: Acetaminophen (Tylenol Tab*) 650 mg PO Q6H PRN Reason: PAIN Heparin Sodium (Porcine) (Heparin Vial(*)) 5,000 units SUBCUT Q8HR RIGO Hydralazine HCl (Apresoline Iv*) 5 mg IV SLOW PU Q6H PRN Reason: BLOOD PRESSURE Sodium Chloride (Ns 0.9% 1000 Ml*) 1,000 mls @ 100 mls/hr IV PER RATE RIGO Morphine Sulfate (Morphine Inj (Syringe)*) 2 mg IV Q2H PRN Reason: PAIN Omeprazole (Prilosec Cap*) 20 mg PO 0600 RIGO Ondansetron HCl (Zofran Inj*) 4 mg IV Q4H PRN Reason: NAUSEA Vital Signs 01/11/17 01/11/17 01/11/17 15:18 19:30 20:00 Temperature 98.1 F 98.6 F Pulse Rate 63 67 Respiratory 17 17 18 Rate Blood Pressure 155/74 174/81 (mmHg) O2 Sat by Pulse 95 92 Oximetry 01/11/17 01/12/17 01/12/17 23:52 05:01 07:39 Temperature 98.5 F 98.6 F 98.7 F Pulse Rate 68 79 77 Respiratory 16 16 16 Rate Blood Pressure 165/86 168/86 182/87 (mmHg) O2 Sat by Pulse 92 91 94 Oximetry 01/12/17 01/12/17 01/12/17 08:21 08:53 10:03 Temperature Pulse Rate 86 80 Respiratory 18 Rate Blood Pressure 180/89 165/76 (mmHg) O2 Sat by Pulse 96 Oximetry 01/12/17 11:07 Temperature 98.4 F Pulse Rate 83 Respiratory 16 Rate Blood Pressure 157/76 (mmHg) O2 Sat by Pulse 95 Oximetry Oxygen Devices in Use Now: None Eyes: No Scleral Icterus, PERRLA Ears/Nose/Mouth/Throat: NL Teeth, Lips, Gums, Mucous Membranes Moist Neck: NL Appearance and Movements; NL JVP, Trachea Midline Respiratory: Symmetrical Chest Expansion and Respiratory Effort, Clear to Auscultation Cardiovascular: NL Sounds; No Murmurs; No JVD, RRR Abdominal: NL Sounds; No Tenderness; No Distention Extremities: No Edema Skin: No Rash or Ulcers Neurological: Alert and Oriented x 3, NL Muscle Strength and Tone Lines/Tubes/Other Access: Clean, Dry and Intact Peripheral IV - site benign Nutrition: Taking PO's Result Diagrams: 01/12/17 05:56 01/12/17 05:56 Additional Lab and Data: Assess/Plan/Problems-Billing Assessment: Ms. John is a 76 yo female with a PMH of celiac disease and duodenal stenosis who presented to the ED on 01/09 with concern for epigastric pain and n/ v. - Patient Problems (1) HTN (hypertension) Code(s): I10 - ESSENTIAL (PRIMARY) HYPERTENSION SNOMED Code(s): 17782518 Comment: - SBP 120-180's - Recommend that patient start on antihypertensives at discharge - Low sodium diet (2) Epigastric pain Code(s): R10.13 - EPIGASTRIC PAIN SNOMED Code(s): 86249934 Comment: - Epigastric pain, abd tenderness and nausea resolved. Last BM yesterday. - Troponins negative. No ischemic changes noted to EKG. CTA negative for PE. - Afebrile, no leukocytosis. CTA and gallbladder scan with no definitive findings. HIDA scan negative - She reports episodes of recurrent n/v every 3-4 months, though pain this time is abnormal. - Follows celiac diet. - Records requested from Dr. To at [place]. - Appreciate GI input. - Plan to discharge home on PPI (3) Duodenal stenosis Code(s): K31.5 - OBSTRUCTION OF DUODENUM SNOMED Code(s): 12012126 Comment: - s/p dilatation. - Records reviewed from [place]. - Continue outpatient f/u. (4) Celiac disease Code(s): K90.0 - CELIAC DISEASE SNOMED Code(s): 504048493 Comment: - Resume gluten free diet (5) DVT prophylaxis Code(s): UBV3492 - SNOMED Code(s): 557987525 Comment: - SQ heparin (6) DNR (do not resuscitate) Status and Disposition: Inpatient admission. Anticipate LOS >2 days. Discharge to home when medically stable.
[2017-01-12 16:55] VITALS: BP 149/84
--- NOTE | 2017-01-13 07:43 | DS ---
DISCHARGE SUMMARY: DATE OF ADMISSION: 01/09/17 DATE OF DISCHARGE: 01/12/17 ATTENDING PHYSICIAN: Jed Louis MD * (dictated by Niyah Baxter NP). PRIMARY CARE PROVIDER: Ryann Horton MD PRIMARY DIAGNOSES: 1. Epigastric pain. 2. Hypertension. SECONDARY DIAGNOSES: 1. Celiac disease. 2. Duodenal stenosis, status post dilation. CONSULTATIONS WHILE IN THE HOSPITAL: Dr. Jac Vernon with Gastroenterology. STUDIES WHILE IN THE HOSPITAL: 1. Chest x-ray on 01/09/17. Radiologist impression - no active pulmonary disease is noted, likely cardiomegaly is noted. 2. Chest, abdomen, pelvis CTA on 01/09/17. Radiologist impression - no evidence of pulmonary embolus is noted. There is a distended gallbladder, however, no calcified gallstones, wall thickening, or pericholecystic fluid is noted. Small bowel demonstrates no evidence of abnormal dilation. No other masses or fluid collections are noted. 3. Gallbladder ultrasound on 01/09/17. Radiologist impression - no definitive cholelithiasis is noted. Limited evaluation of liver. The study is limited due to body habitus. 4. Nuclear medicine hepatobiliary scan - HIDA on 01/11/17. Radiologist impression - no secretion of the radionucleotide into biliary system suggestive of hepatocellular failure. DISCHARGE MEDICATIONS: New home medications: 1. Omeprazole 20 mg oral daily. 2. Amlodipine 5 mg oral daily. Continued home medications: 3. Eye drops 1 drop to eyes daily. HISTORY OF PRESENT ILLNESS/HOSPITAL COURSE: Ms. John is a 76-year-old female with past medical history significant for celiac disease and a duodenal stenosis and is recently status post dilation, who presented to the emergency room with complaints of epigastric pain that radiated to her back. The patient also reports nausea and vomiting, but no fever or chills. The patient was folding clothes when the pain started. The patient reports that the discomfort was different than her typical indigestion. The patient took Jahaira-Withee with little relief. The patient denied any shortness of breath. Her significant other felt that she was having difficulty breathing. She denied any palpitations. The patient, approximately 2 to 3 weeks ago, is status post duodenal stenosis dilation. The patient reports every 3 to 4 months presenting to emergency room for complaints of nausea and vomiting and what is described as syncopal episodes. She often receives IV hydration and is discharged without any answers. This episode was similar to previous episodes in that she had the associated nausea and vomiting, but she has not had the epigastric pain in the past. Due to her concern that this may be a cardiac event, the patient presented to the emergency room for further evaluation of her symptoms. While in the emergency room, the patient had a chest x-ray showing no acute findings. She had a CTA of her chest, abdomen, and pelvis showing no evidence of PE and a distended gallbladder. The patient had a gallbladder ultrasound showing no definitive cholelithiasis. She had an EKG showing a sinus rhythm with a rate of 75, left anterior hemiblock, and no acute ST-T changes. The patient had labs that were fairly unremarkable. She had a troponin of 0.00, an AST of 16, an ALT of 10. D-dimer of 372. Urinalysis with 3+ rbc's. Based off the patient's presentation, the hospitalists were asked to evaluate the patient for admission. While in the hospital, the patient's epigastric pain improved, but the patient continued to have some nausea. She denied any diarrhea. The patient reported being followed by Dr. Madison and Dr. To. It was felt that the patient's epigastric pain with radiation to her back could be related to her gallbladder. A Gastroenterology consult was requested and the patient was seen in consultation by Dr. Jac Vernon. Dr. Vernon felt that the patient 's pain may be related to biliary disease and he recommended a HIDA scan and placing the patient on empiric PPI therapy. He felt that if the patient's symptoms persisted, a repeat endoscopy may be needed to reevaluate the area of stenosis. The patient underwent a biliary HIDA scan showing no excretion of the radionuclide into the biliary system suggestive of hepatocellular failure. Dr. Vernon felt that this was a poorly timed testing and that this did not actually represent hepatocellular failure. The patient's nausea resolved and her epigastric pain resolved. She was advanced to her regular celiac diet, which she was tolerating well. It is to note that during the patient's time here, she was hypertensive with systolic blood pressures anywhere from 120s to 180s. The patient did have a brief period of leukocytosis that resolved during her stay. The patient also had an episode of elevated creatinine, both on admission and during her stay. Her creatinine was back to normal at discharge. The patient had urinalysis showing no growth. Ms. John is stable for discharge to home today. Vital signs are as follows ; temperature 98.4, heart rate 75, respiratory rate 17, O2 sat 96% on room air, blood pressure 149/84. DISCHARGE PLAN: Ms. John will be discharged to home. ACTIVITY: As tolerated. DIET: She should be on a celiac, low sodium diet. As far as the patient's hypertension, I recommended the patient start on amlodipine 5 mg oral daily and to monitor her blood pressures at home and to follow up with her primary care provider, Dr. Horton. The patient has been instructed to call Dr. Horton's office on Sunday morning and set up an appointment to be seen in the next 1 to 2 weeks. As far as the patient's epigastric pain, I suspect some of this may be related to indigestion. The patient has been started on omeprazole 20 mg daily. It has been recommended that she maintain her followup appointments with Dr. To. She reports upcoming appointments with him and upcoming procedure for another dilation of her duodenal stenosis. The patient is asked to return to the emergency room for chest pain or shortness of breath. This is a summarized report of a complex medical history and hospital stay. For further details, please see the entire medical record. TIME SPENT: Time for this discharge was 50 minutes and 25 minutes were spent face- to-face with the patient and significant other discussing discharge plans and instructions. CONDITION ON DISCHARGE: Stable. NIYAH CARIAS NP CC: Ryann Horton MD; Dr. Iggy To * [id number]/[facility] #: [id number] SERENA
== END 2017-01-12 19:30 | disposition home or self-care (01) | DRG 392 ==
LOC: ED 15:44 → MEDTELE 20:26
PROVIDERS: ADMIT Internal Medicine; ATTEND Hospitalist
DX: R10.13 Epigastric pain (principal); K31.5 Obstruction of duodenum; I10 Essential (primary) hypertension; K90.0 Celiac disease; D72.829 Elevated white blood cell count, unspecified; Z66 Do not resuscitate; Z82.49 Family history of ischemic heart disease and other diseases of the circulatory system
CPT/HCPCS: 36415; 71010; 71275; 74177; 76705; 78226; 80048; 80053; 80061; 81003; 81015; 82550; 82553; 83605; 83690; 83735; 83880; 84443; 84484; 85025; 85379; 85610; 85730; 86140; 87086; 90732; 93005; A9270-GY; A9537; J0360; J1644; J2405; Q9967

== ENCOUNTER 2017-02-20 10:48 | Observation (INO) | payer MEDICARE, OTHER ==
[2017-02-20] MEDS ORDERED: NS 0.9% 1000 ML* 1,000 ML IV ONE (11:52)
[2017-02-20] MEDS ORDERED: Ondansetron INJ* 2 MG/ML VIAL IV ONE (11:52)
--- NOTE | 2017-02-20 12:36 | RAD ---
INDICATION: Diffuse abdominal pain. COMPARISON: Comparison is made with a prior abdominal series from April 23, [address] of the abdomen and pelvis from January 09, 2017. TECHNIQUE: Supine and upright views of the abdomen were obtained. FINDINGS: The small bowel and colon appear nondistended. No free intraperitoneal air is seen. There is a moderate to large amount retained stool. There is a 4 mm calcification which projects to the left of the L4 vertebra which is a nonspecific finding although a left ureteral calculus cannot be ruled out. This is not seen on the prior abdominal series. IMPRESSION: 1. THERE IS A CALCIFICATION LATERAL TO THE L4 VERTEBRA ON THE LEFT SIDE POSSIBILITY REPRESENTING A URETERAL CALCULUS IF THIS IS OF CONCERN RECOMMEND A CT OF THE ABDOMEN AND PELVIS FOR FURTHER EVALUATION. 2. MODERATE TO LARGE AMOUNT RETAINED STOOL.
[2017-02-20 12:43] LABS: Hematocrit 43 % (35-47); Hemoglobin 14.1 g/dl (12.0-16.0); Mean Corpuscular HGB Conc 33 g/dl (31-36); Mean Corpuscular Hemoglobin 30 pg (27-31); Mean Corpuscular Volume 92 fL (80-97); Mean Platelet Volume 10 um3 (7.4-10.4); Red Blood Count 4.65 10^6/ul (4.0-5.4); Red Cell Distribution Width 14 % (10.5-15); White Blood Count 12.1 10^3/ul (3.5-10.8)
[2017-02-20 12:53] LABS: Urine Bacteria 1+ (Absent); Urine Bilirubin Negative (Negative); Urine Glucose 1+(50 mg/dL) (Negative); Urine Nitrite Negative (Negative)
[2017-02-20 12:58] LABS: Troponin I 0.01 ng/mL (<0.04)
[2017-02-20 13:06] LABS: Albumin 4.5 g/dL (3.2-5.2); C Reactive Protein 136.63 mg/L (< 5.00); Calcium 10.3 mg/dL (8.6-10.3); EGFR African American 44.4 (>60); EGFR Non-African American 34.6 (>60); Globulin 3.4 g/dL (2-4); Potassium 3.9 mmol/L (3.5-5.0); Total Bilirubin 1.2 mg/dL (0.2-1.0); Total Protein 7.9 g/dL (6.4-8.9)
--- NOTE | 2017-02-20 14:42 | RAD ---
INDICATION: Abdominal pain. COMPARISON: Comparison is made with a prior CT of the abdomen and pelvis from January 09, 2017. TECHNIQUE: A CT scan of the abdomen and pelvis was performed without intravenous or oral contrast. Contiguous axial sections were obtained from the lung bases through the symphysis pubis. Images were reconstructed in the coronal and sagittal planes. FINDINGS: There is mild dependent bilateral lower lobe subsegmental atelectasis. No pleural effusion is present. The liver and spleen are within normal limits in size without significant focal abnormality on this noncontrast study. The gallbladder appears distended and is slightly prominent than on the prior study. No calcified gallstones or gallbladder wall thickening is seen. There is fatty infiltration of the pancreas which is otherwise unremarkable. The adrenal glands appear to be within normal limits. The kidneys appear slightly small in size with bilateral cortical thinning. There are small bilateral renal calculi present. The largest calculus is present in the lower pole of the right kidney measuring 5 mm in size. In addition, there is a 4 mm calculus in the proximal left ureter. This is causing moderate to severe left hydronephrosis with dilatation of the left renal pelvis and calyces. There is also mild stranding in the left perinephric space. The aorta is tortuous and ectatic. No aneurysm is seen. There is moderate to severe calcific plaque present. No significant enlarged retroperitoneal lymph nodes are seen. The stomach, small and large bowel appear nondistended. The appendix is within normal limits. There is mild descending and sigmoid diverticulosis without evidence for diverticulitis. The patient is status post hysterectomy. No free intraperitoneal air or fluid is seen. No significant focal osseous abnormality is seen. IMPRESSION: BILATERAL RENAL CALCULI. IN ADDITION THERE IS A 4 MM CALCULUS IN THE PROXIMAL LEFT URETER CAUSING MODERATE TO SEVERE HYDRONEPHROSIS.
[2017-02-20] MEDS ORDERED: HYDROmorphone* 1 MG/ML 1 ML SYR IV SLOW PU PRN (16:23)
[2017-02-20] MEDS ORDERED: oxyCODONE/Acetamin 5/325 MG* TAB PO PRN (16:23)
[2017-02-20] MEDS ORDERED: HYDROmorphone* 1 MG/ML 1 ML SYR ONE ×2 (16:33→17:47)
[2017-02-20] MEDS ORDERED: Midazolam* 1 MG/ML 2 ML VIAL (2 MG) ONE (16:33)
[2017-02-20] MEDS ORDERED: fentaNYL* 50 MCG/ML 2 ML VIAL (100 MCG VIAL) ONE (16:33)
[2017-02-20] MEDS ORDERED: Ketorolac INJ* 30 MG/ML 1 ML VIAL ONE (16:40)
[2017-02-20] MEDS ORDERED: Lidocaine 2% PF * 5 ML VIAL ONE (16:40)
[2017-02-20] MEDS ORDERED: Ondansetron INJ* 2 MG/ML VIAL ONE (16:40)
[2017-02-20] MEDS ORDERED: Propofol* 10 MG/ML 20 ML BTL IV PUSH ONE (16:40)
[2017-02-20] MEDS ORDERED: Ondansetron INJ* 2 MG/ML VIAL IV PRN ×2 (16:40→17:22)
[2017-02-20] MEDS ORDERED: Iohexol 180 (CONTRAST) 10 ML SDV IV ONE (16:46)
[2017-02-20] MEDS ORDERED: cefTRIAXone VIAL(*) 1,000 MG in NS 0.9% 50 ML* 50 ML IVPB SCH (17:00)
[2017-02-20] MEDS ORDERED: cefTRIAXone VIAL(*) 1,000 MG VIAL ONE (17:13)
[2017-02-20] MEDS ORDERED: fentaNYL* 50 MCG/ML 2 ML VIAL (100 MCG VIAL) IV PRN (17:22)
[2017-02-20] MEDS ORDERED: DiMENhydriNATE IV* 50 MG/ML VIAL IV PUSH PRN (17:22)
[2017-02-20] MEDS ORDERED: PROCHLORPERAZINE INJ 5 MG/ML 2 ML VIAL IV PRN (17:22)
[2017-02-20] MEDS ORDERED: HYDROmorphone* 1 MG/ML 1 ML SYR IV PRN (17:22)
[2017-02-20] MEDS ORDERED: Meperidine SYRINGE* 50 MG/ML ONE (18:09)
[2017-02-20] MEDS ORDERED: Esmolol* 10 MG/ML 10 ML (100 mg) ONE (18:09)
--- NOTE | 2017-02-20 19:04 | RAD ---
INDICATION: Stent placement COMPARISONS: CT dated February 20, 2017 TECHNIQUE: Fluoroscopy was provided for a retrograde pyelogram and stent placement. Total fluoroscopy time is: 16 seconds FINDINGS: Contrast is noted within the renal fat consistent. A ureteral stent is noted IMPRESSION: FLUOROSCOPY WAS PROVIDED FOR A RETROGRADE PYELOGRAM AND STENT PLACEMENT CPT II Codes: 6045F
[2017-02-20] MEDS: NS 0.9% 1000 ML* 1,000 ML IV SCH (20:20)
--- NOTE | 2017-02-20 20:30 | HP ---
HISTORY AND PHYSICAL: DATE OF ADMISSION: 02/20/17 PRIMARY CARE PHYSICIAN: Dr. Ryann Horton. CHIEF COMPLAINT: Nausea, vomiting, flank pain. HISTORY OF PRESENT ILLNESS: Ms. John is a pleasant 76-year-old female with a past medical history of celiac disease; duodenal stenosis, status post dilatation; hypertension, not currently on medications, who presented to the hospital with nausea, vomiting, and flank pain. The patient states that she has had celiac disease for a number of years now and frequently gets episodes of abdominal discomfort, nausea, vomiting; however, this episode seemed different. She has been having nausea and vomiting for the past 3 to 4 days. She has had decreased p.o. intake over this time too; however, with this episode , she has also noted left flank pain, which is unusual. She denies any fever. Denies any history of kidney stones. No chest pain or shortness of breath. The patient presented to the emergency department and CT scan showed a left ureteral stone that was causing mlscjxoc-rg-awirkh hydronephrosis. Dr. Austin of Urology was consulted and the hospitalist service was asked to evaluate the patient for admission. PAST MEDICAL HISTORY: Celiac disease; duodenal stenosis, status post dilatation , last about 10 days ago; hypertension, not currently on medication. PAST SURGICAL HISTORY: Hysterectomy. HOME MEDICATIONS: Significant for just tetrahydrozoline eye drops. ALLERGIES: No known drug allergies. FAMILY HISTORY: Significant for father with CAD. SOCIAL HISTORY: The patient denies any tobacco, alcohol, or illicit drug use. 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 REVIEW OF SYSTEMS: A 12-point review of systems negative except for that is noted in the HPI. PHYSICAL EXAMINATION GENERAL: The patient is a pleasant elderly female, lying in bed, in no apparent distress. VITAL SIGNS: On admission, temperature 97.4, heart rate of 105, respiratory rate of 17, O2 saturation 96% on room air, blood pressure 144/69. HEENT: Pupils are equal, round, and reactive to light and accommodation. Anicteric sclerae. Moist mucous membranes. LUNGS: Clear to auscultation bilaterally. No wheezes, rales, or rhonchi. CARDIOVASCULAR: Regular rate and rhythm. S1 and S2 present. No murmurs, gallops, or rubs. ABDOMEN: Soft, nondistended. Bowel sounds positive. Mild tenderness to palpation in left upper and lower quadrants as well as left flank. EXTREMITIES: No cyanosis, clubbing, or edema. NEURO: The patient is alert and oriented x3. No focal neurological deficits. SKIN: Warm, dry, and well perfused. DIAGNOSTIC STUDIES/LAB DATA: White blood cell count of 12.1, hematocrit of 43 , platelets of 212. Sodium 134, potassium 3.9, chloride 96, carbon dioxide 27, BUN 25, creatinine 1.47, glucose 151. Total bilirubin 1.2, alk phos of 118. CRP of 136. Troponin 0.01. Lipase of 10. UA with 2+ protein, 1+ ketone, 2+ blood, 3+ leuk esterase, 1+ bacteria, squamous epithelial cells present, 1+ glucose. Abdomen x-ray shows calcification lateral to the L4 vertebra on the left side, possibly ureteral calculus, hjwexpme-zl-hepcl amount of retained stool. CT abdomen and pelvis shows bilateral renal calculi. In addition, there is a 4- mm calculus in the proximal left ureter causing eqdcsdol-eo-eibwyc hydronephrosis. ASSESSMENT AND PLAN: Obstructive uropathy secondary to ureteral stone causing sczzxxdv-ah-zcbpdp hydronephrosis, possibly pyelonephritis in a 76-year-old female with a past medical history of celiac disease, duodenal stenosis, and hypertension. 1. Obstructive uropathy. This is causing ehdncevy-nt-ykdsjk hydronephrosis on CT scan, maybe some infectious component as well. Dr. Austin requested gentamicin, which was ordered by the ED. I will continue the patient on ceftriaxone IV daily for now. Dr. Austin is taking the patient to the OR now for stent placement to relieve the obstruction. We will trend her creatinine tomorrow and we will follow urine culture. She is currently n.p.o. for procedure. We will write the patient for IV fluids overnight, analgesia, and antiemetics. 2. Celiac disease. The patient is not on any medications. Will need to have a gluten-free diet. 3. Hypertension. The patient had high blood pressures during her last admission and was sent home on amlodipine. She reports that when she followed up with her PCP office, her blood pressure normalized and she did not continue the medications. We will just monitor blood pressures for now. 4. DVT prophylaxis. SCDs. 5. Code status: The patient is a full code. TIME SPENT: Total time spent on this admission 45 minutes with over half the time spent ensl-df-pmdl with the patient in counseling and coordinating care. CC: Dr. Ryann Horton * [id number]/[facility] #: [id number] SERENA
--- NOTE | 2017-02-20 21:12 | CONS ---
UROLOGY CONSULTATION: DATE OF CONSULTATION: 02/20/17 AGE: 76 years, female. REQUESTING PHYSICIAN: Jim Price MD. DIAGNOSES: 1. Left flank pain. 2. Left hydronephrosis. 3. Obstructing calculus, left proximal ureter. 4. Bilateral renal calculi. 5. Possible pyelonephritis. HISTORY: aBrbara John is a 76-year-old lady who has had episodic left flank pain, nausea, and vomiting for the last 1 month. The pain and vomiting got more severe over the last 3 to 4 days and she eventually presented to the emergency room where a CT scan revealed 4 to 5 mm obstructing calculus in the left proximal ureter with moderate to severe left hydronephrosis. In addition, she has bilateral renal calculi. Urinalysis revealed bacteriuria and she is now being brought in for urgent left stent insertion to be followed at some point in the future by lithotripsy or laser lithotripsy. PAST MEDICAL HISTORY: Significant for: 1. Hypertension (currently not requiring any medication). 2. Glaucoma. MEDICATIONS: On admission, eye drops for glaucoma. ALLERGIES: No known drug allergies. REVIEW OF SYSTEMS: She is otherwise in excellent health. There is no history of diabetes mellitus or any other major systemic illness. PHYSICAL EXAMINATION: Reveals a pleasant, uncomfortable appearing elderly lady. Blood pressure is 130/80, pulse 80 per minute, temperature is 36.9. Cardiovascular: Regular rate and rhythm. S1, S2. Lungs: Clear bilaterally. Abdomen: Soft with left flank tenderness. I reviewed the CT scan and agree with the reported findings of an obstructing calculus in the left proximal ureter. I had a detailed discussion with the patient and her , and the plan is for urgent left stent insertion to be followed in the near future by either shockwave lithotripsy or laser lithotripsy depending on the postoperative x-ray findings. CC: Dr. Horton; Mj Austin MD * [id number]/[facility] #: [id number] [facility]
[2017-02-21 06:37] LABS: Hematocrit 38 % (35-47); Hemoglobin 12.5 g/dl (12.0-16.0); Mean Corpuscular HGB Conc 33 g/dl (31-36); Mean Corpuscular Hemoglobin 30 pg (27-31); Mean Corpuscular Volume 91 fL (80-97); Mean Platelet Volume 9 um3 (7.4-10.4); Red Blood Count 4.13 10^6/ul (4.0-5.4); Red Cell Distribution Width 14 % (10.5-15); White Blood Count 6.1 10^3/ul (3.5-10.8)
[2017-02-21 06:56] LABS: Calcium 9.6 mg/dL (8.6-10.3); EGFR African American 55.6 (>60); EGFR Non-African American 43.3 (>60); Potassium 3.8 mmol/L (3.5-5.0)
[2017-02-21] MEDS: NS 0.9% 1000 ML* 1,000 ML IV SCH (07:09)
--- NOTE | 2017-02-21 08:30 | OP ---
CC: Dr. Horton; Mj Austin MD OPERATIVE REPORT: DATE OF OPERATION: 02/20/17 DATE OF : 40 AGE: 76 years. SEX: Female. SURGEON: Mj Austin MD ANESTHESIOLOGIST: Sanket Alvarado MD ANESTHESIA: General. PRE-OPERATIVE DIAGNOSES: 1. Left hydronephrosis. 2. Obstructing calculus, left proximal ureter. 3. Bilateral renal calculi. POST-OPERATIVE DIAGNOSES: 1. Left hydronephrosis. 2. Obstructing calculus, left proximal ureter. 3. Bilateral renal calculi. SURGICAL PROCEDURES: Cystoscopy, left retrograde pyelogram, left ureteral calculus manipulation, an d left stent insertion. COMPLICATIONS: None. STENT USED: 7-[place], stent left ureter. OPERATIVE FINDINGS: 1. Cystocele. 2. Obstructing calculus, left proximal ureter. POSTOPERATIVE CONDITION: Stable. INDICATION: Barbara John is a 76-year-old lady who is evaluated for obstructing calculus in the left proximal ureter and bacteriuria. She is being brought in for an urgent left stent insertion t o be followed at some point in the future by lithotripsy. DESCRIPTION OF PROCEDURE: After induction of general anesthesia, the patient was placed in dorsal l ithotomy position. Sequential compression devices were in place in the right leg, but not in the le ft leg because of the presence of an IV in the left foot. Initial cystoscopy revealed a grade 3 cystocele with distortion of the trigone as would be expected with a large cystocele. The bladder was unremarkable. A guidewire was introduced into the left ure ter. Retrograde pyelogram revealed fullness of the left collecting system and a calculus was seen i n the proximal left ureter. Using the open-ended catheter, this was carefully manipulated proximall y and a 7-[place] stent was introduced and positioned under fluoroscopy with good proximal and distal positioning obtained. The bladder was emptied. The patient tolerated the procedure satisfactorily and was transferred back to the recovery area in stable condition. [id number]/[facility] #: [id number]
--- NOTE | 2017-02-21 11:19 | RAD ---
HISTORY: Left ureteral stent placement COMPARISONS: February 20, 2017 VIEWS: Frontal views of the abdomen. FINDINGS: BOWEL: There is a nonspecific bowel gas pattern, with nondilated small bowel gas noted. There is a moderate amount of stool within the colon. CALCULI: There has been interval placement of a left ureteral stent. There is a 0.4 cm calculus of the lower pole of the right kidney. There is a 0.4 cm calculus along the proximal left ureter BONES AND SOFT TISSUES: There is a scoliotic curvature of the spine. Degenerative changes are noted OTHER FINDINGS: The lung bases are clear. There is no subphrenic gas. IMPRESSION: 1. NEPHROLITHIASIS. 2. LEFT URETERAL STENT
[2017-02-21 12:10] VITALS: BP 165/70
--- NOTE | 2017-02-21 16:35 | DS ---
DISCHARGE SUMMARY: DATE OF ADMISSION: 02/20/17 DATE OF DISCHARGE: 02/21/17 PRIMARY CARE PROVIDER: Dr. Horton ATTENDING PHYSICIAN WHILE IN THE HOSPITAL: Nga Clement MD * (report dictated by Ervin Brown NP). CONSULTING UROLOGIST: Mj Austin MD. DISCHARGE DIAGNOSES: Obstructive uropathy secondary to nephrolithiasis. SECONDARY DIAGNOSES: Include: 1. Celiac disease. 2. Hypertension. DISCHARGE MEDICATIONS: Include tetrahydrozoline 0.05% ophthalmic daily. HISTORY OF PRESENTING ILLNESS AND HOSPITAL COURSE: Ms. John is a 76-year- old female patient that presented to the ER yesterday with complaints of abdominal discomfort, flank pain, nausea, and vomiting. She says that she was frequently getting episodes of abdominal discomfort, nausea,and vomiting. However, this episode seemed to be much different. She said she had been having vomiting and nausea for the last 3 days and decreased p.o. intake. However, with this episode, she noted increasing left flank pain,which was unusual. She denied having any fever. She ultimately came into the hospital and was found to have a CT scan that showed left ureteral stone causing moderate to severe hydronephrosis. Dr. Austin was consulted and the patient was taken to the OR, where she underwent a stenting of the left ureter. She underwent the procedure, she tolerated it well; however, postoperatively she was noted to be tachycardic, so she was observed overnight. She was given IV fluids and she was given another dose of antibiotics. Her white count trended down, she remained afebrile. Her blood pressure was mildly elevated at 167/81 this morning. She says that she recently has stopped taking her medications because her blood pressure normalized. I will have her follow with her primary for this again and I have instructed her to take her blood pressures and monitor them and again follow with the primary. She states that the pain is improved significantly and again she remained afebrile and her white count went down. I did touch base with Dr. Austin who recommended at this point that the patient could go home, but he would recommend giving her another dose of IV gentamicin and then close followup with Dr. Austin, and I did instruct the patient to return for any fevers, chills, nausea, vomiting, or worsening flank pain. Dr. Austin says he will follow up with the patient in the outpatient setting for the ureteral stenting. The patient again denied currently having any chest pain or shortness of breath. No headaches. She says she feels great. She ate dinner today and she has been ambulating in her room, so again at this point she will be discharged. CONDITION AT DISCHARGE: Stable. STATUS DURING HOSPITALIZATION: Observation. PHYSICAL EXAM ON DISCHARGE: Vital Signs: Blood pressure 167/81, pulse 63, respirations 16, O2 saturation 97%, temperature 98.2. Generally, at this time, Ms. John is a 76-year-old female patient. She appears to be well nourished and well developed. She does not appear to be in any acute distress. She is sitting in the hospital bed. HEENT: Head is atraumatic. Eyes: Sclerae are anicteric. Neck is supple. Throat: Oral mucosa appeared to be moist. No oropharyngeal erythema. Heart sounds S1 and S2. regular rate and rhythm. No murmurs, rubs, or gallops. Lungs clear to auscultation bilaterally. No wheezes, rales, or rhonchi. Abdomen: Soft, flat, and nontender. There is no CVA tenderness. Extremities: Pulses were 2+ throughout. She is able to move all 4 extremities with 5/5 strength. Neurological: She is awake, alert, and oriented x3. No gross focal deficits. Skin: Grossly intact. DIAGNOSTIC STUDIES/LAB DATA: Labs on discharge revealed WBC of 6.1 down from 12.1. Her RBC was 4.13, hemoglobin 12.5, hematocrit 38, platelet count was 183. Her sodium was 134, potassium 3.8, chloride 100, and bicarb was 25. Her BUN was 23, creatinine 1.21. Her admission creatinine was 1.47, which again is trending down back to her baseline. Glucose 144. She had an abdominal x-ray obtained today, which read impression; nephrolithiasis and left ureteral stent. She had a CT of abdomen and pelvis, which showed bilateral renal calculi. In addition, there was a 4 mm calculus in the proximal left ureter causing moderate to severe hydronephrosis. Old medical records were reviewed. ISSUES TO BE ADDRESSED ON FOLLOWUP: 1. Nephrolithiasis with obstructive uropathy. I will have the patient follow closely with Dr. Austin. She has been instructed to call him. She has also been instructed to return for any fevers, chills, nausea, or vomiting and at this point it was recommended no antibiotics to be given. The thing that is pending now is there is a microbiology pending for her urine, which could be followed with Dr. Horton and Dr. Austin. 2. Hypertension. Again blood pressure today is 167/81, but she have been 144- 150 here. I am going to have her follow with her primary. She said that she was on Norvasc and this was stopped as her blood pressure normalized in the outpatient setting. So, she can follow with her primary for this. 3. Celiac disease, again follow with primary. No active issue currently. 4. Issues to return to the hospital include, but are not limited to, chest pain, shortness of breath, fevers, chills, nausea, and vomiting. 5. Acute kidney injury, again probably secondary to the hydronephrosis and the obstructing stone, which is now relieved. Creatinine is trending down. She can follow this with her primary. 6. Issues to return to the hospital include, again chest pain, fevers, chills, nausea, vomiting, abdominal pain, or flank pain or any worsening symptoms. DIET: She can have a regular diet. ACTIVITY: As tolerated. TIME SPENT: Time spent on the discharge was approximately 40 minutes. Greater than half the time spent face to face with the patient going over the discharge plan, the other half the time was spent in implementing the discharge plan. I did discuss the discharge plan with my attending, Dr. Clement; she is in agreement. ERVIN BROWN NP CC: Dr. Horton; Dr. Austin * [id number]/[facility] #: [id number] [facility]
--- NOTE | 2017-02-21 20:15 | ED ---
Rasheed Monaco Matthew, scribed for Florencio Price MD on 02/20/17 at 1252 . GI/ HPI - HPI Summary HPI Summary: A 76 y/o female presents to the ED with n/v since 4 days ago. Her symptoms mild improve on 02/18; but worsened on 02/19. Associated symptoms include decreased appetite, lower back pain, and diffuse lower abdominal pain. The patient denies diarrhea. She states that she has not had a BM since the onset. The patient recently had her duodenum dilated 10 days ago. - History of Current Complaint Chief Complaint: EDNauseaVomitDiarrh Time Seen by Provider: 02/20/17 11:35 Stated Complaint: VOMITING SINCE ENDO PROCEDURE Hx Obtained From: Patient Onset/Duration: Started Days Ago, Atraumatic, Still Present Timing: Constant Severity: Moderate Current Severity: Moderate Pain Intensity: 6 Location of Pain: Umbilical - periumbilical Associated Signs and Symptoms: Positive: Back Pain - lower back pain, Nausea, Vomiting, Change in Appetite - decreased, Abdominal Pain - diffuse lower abdominal pain. Negative: Diarrhea - Additional Pertinent History Primary Care Physician: [id number] - Allergy/Home Medications Allergies/Adverse Reactions: Allergies Allergy/AdvReac Type Severity Reaction Status Date / Time No Known Allergies Allergy Verified 02/20/17 10:56 PMH/Surg Hx/FS Hx/Imm Hx Endocrine/Hematology History: Reports: Hx Anemia Denies: Hx Diabetes Cardiovascular History: Denies: Hx Congestive Heart Failure, Hx Hypertension Respiratory History: Reports: Hx Pneumonia - (as a baby) GI History: Reports: Other GI Disorders - Celiac Disease History: Denies: Hx Renal Disease Sensory History: Reports: Hx Contacts or Glasses - glasses Opthamlomology History: Reports: Hx Contacts or Glasses - glasses Neurological History: Reports: Hx Migraine - Surgical History Surgery Procedure, Year, and Place: hysterectomy - Immunization History Date of Tetanus Vaccine: Unknown Infectious Disease History: No Infectious Disease History: Reports: Hx Hepatitis - Hepatitis B, History Other Infectious Disease - Hx of meningitis Denies: Hx Clostridium Difficile, Hx Human Immunodeficiency Virus (HIV), Hx of Known/Suspected MRSA, Hx Shingles, Hx Tuberculosis, Hx Known/Suspected VRE, Hx Known/Suspected VRSA, Traveled Outside the [place] in Last 30 Days - Family History Family History: FHx of liver cancer - Father - Social History Alcohol Use: None Substance Use Type: Reports: None Smoking Status (MU): Never Smoked Tobacco Review of Systems Constitutional: Other - decreased appetite Eyes: Negative ENT: Negative Cardiovascular: Negative Respiratory: Negative Positive: Abdominal Pain - diffuse lower abdominal pain , Vomiting, Nausea. Negative: Diarrhea Positive: Myalgia - lower back pain Skin: Negative Neurological: Negative Psychological: Normal All Other Systems Reviewed And Are Negative: Yes Physical Exam Triage Information Reviewed: Yes Vital Signs On Initial Exam: Initial Vitals Temp Pulse Resp BP Pulse Ox 97.4 F 105 17 144/69 96 02/20/17 10:53 02/20/17 10:53 02/20/17 10:53 02/20/17 10:53 02/20/17 10:53 Vital Signs Reviewed: Yes Appearance: Positive: Well-Appearing, No Pain Distress Skin: Positive: Warm, Skin Color Reflects Adequate Perfusion, Dry, Other - tense skin Eyes: Positive: EOMI, SANTOS ENT: Positive: Other - dry mucous membrane Neck: Positive: Supple, Nontender Respiratory/Lung Sounds: Positive: Clear to Auscultation, Breath Sounds Present Cardiovascular: Positive: RRR Abdomen Description: Positive: Soft, Other: - Mild periumbilical tenderness Bowel Sounds: Positive: Present Musculoskeletal: Positive: Strength/ROM Intact Neurological: Positive: Alert, Oriented to Person Place, Time Psychiatric: Positive: Affect/Mood Appropriate - Antoni Coma Scale Coma Scale Total: 15 Diagnostics - Vital Signs Vital Signs Temp Pulse Resp BP Pulse Ox 02/20/17 10:55 97.4 F 105 17 144/69 96 02/20/17 10:53 97.4 F 105 17 144/69 96 - Laboratory Lab Results: Lab Results 02/20/17 02/20/17 02/20/17 Range/Units 12:28 12:28 12:28 WBC 12.1 H (3.5-10.8) 10^3/ul RBC 4.65 (4.0-5.4) 10^6/ul Hgb 14.1 (12.0-16.0) g/dl Hct 43 (35-47) % MCV 92 (80-97) fL MCH 30 (27-31) pg MCHC 33 (31-36) g/dl RDW 14 (10.5-15) % Plt Count 212 (150-450) 10^3/ul MPV 10 (7.4-10.4) um3 Neut % (Auto) 85.1 H (38-83) % Lymph % (Auto) 6.4 L (25-47) % Mcdonald % (Auto) 8.1 (1-9) % Eos % (Auto) 0 (0-6) % Baso % (Auto) 0.4 (0-2) % Absolute Neuts (auto) 10.3 H (1.5-7.7) 10^3/ul Absolute Lymphs (auto) 0.8 L (1.0-4.8) 10^3/ul Absolute Monos (auto) 1.0 H (0-0.8) 10^3/ul Absolute Eos (auto) 0 (0-0.6) 10^3/ul Absolute Basos (auto) 0 (0-0.2) 10^3/ul Absolute Nucleated RBC 0 10^3/ul Nucleated RBC % 0 Sodium 134 (133-145) mmol/L Potassium 3.9 (3.5-5.0) mmol/L Chloride 96 L (101-111) mmol/L Carbon Dioxide 27 (22-32) mmol/L Anion Gap 11 (2-11) mmol/L BUN 25 H (6-24) mg/dL Creatinine 1.47 H (0.51-0.95) mg/dL Est GFR ( Amer) 44.4 (>60) Est GFR (Non-Af Amer) 34.6 (>60) BUN/Creatinine Ratio 17.0 (8-20) Glucose 151 H (70-100) mg/dL Lactic Acid (0.5-2.0) mmol/L Calcium 10.3 (8.6-10.3) mg/dL Total Bilirubin 1.20 H (0.2-1.0) mg/dL AST 9 L (13-39) U/L ALT 10 (7-52) U/L Alkaline Phosphatase 118 H (34-104) U/L Troponin I 0.01 (<0.04) ng/mL C-Reactive Protein 136.63 H (< 5.00) mg/L Total Protein 7.9 (6.4-8.9) g/dL Albumin 4.5 (3.2-5.2) g/dL Globulin 3.4 (2-4) g/dL Albumin/Globulin Ratio 1.3 (1-3) Lipase 10 L (11.0-82.0) U/L Urine Color Kim Urine Appearance Cloudy Urine pH 5.0 (5-9) Ur Specific [place] 1.023 (1.010-1.030) Urine Protein 2+(100 mg/dl) H (Negative) Urine Ketones 1+ H (Negative) Urine Blood 2+ H (Negative) Urine Nitrate Negative (Negative) Urine Bilirubin Negative (Negative) Urine Urobilinogen Negative (Negative) Ur Leukocyte Esterase 3+ H (Negative) Urine WBC (Auto) Trace(0-5/hpf) (Absent) Urine RBC (Auto) Trace(0-2/hpf) (Absent) Ur Squamous Epith Cells Present H (Absent) Urine Bacteria 1+ H (Absent) Urine Glucose 1+(50 mg/dl) H (Negative) 02/20/17 Range/Units 12:55 WBC (3.5-10.8) 10^3/ul RBC (4.0-5.4) 10^6/ul Hgb (12.0-16.0) g/dl Hct (35-47) % MCV (80-97) fL MCH (27-31) pg MCHC (31-36) g/dl RDW (10.5-15) % Plt Count (150-450) 10^3/ul MPV (7.4-10.4) um3 Neut % (Auto) (38-83) % Lymph % (Auto) (25-47) % Mcdonald % (Auto) (1-9) % Eos % (Auto) (0-6) % Baso % (Auto) (0-2) % Absolute Neuts (auto) (1.5-7.7) 10^3/ul Absolute Lymphs (auto) (1.0-4.8) 10^3/ul Absolute Monos (auto) (0-0.8) 10^3/ul Absolute Eos (auto) (0-0.6) 10^3/ul Absolute Basos (auto) (0-0.2) 10^3/ul Absolute Nucleated RBC 10^3/ul Nucleated RBC % Sodium (133-145) mmol/L Potassium (3.5-5.0) mmol/L Chloride (101-111) mmol/L Carbon Dioxide (22-32) mmol/L Anion Gap (2-11) mmol/L BUN (6-24) mg/dL Creatinine (0.51-0.95) mg/dL Est GFR ( Amer) (>60) Est GFR (Non-Af Amer) (>60) BUN/Creatinine Ratio (8-20) Glucose (70-100) mg/dL Lactic Acid 0.7 (0.5-2.0) mmol/L Calcium (8.6-10.3) mg/dL Total Bilirubin (0.2-1.0) mg/dL AST (13-39) U/L ALT (7-52) U/L Alkaline Phosphatase (34-104) U/L Troponin I (<0.04) ng/mL C-Reactive Protein (< 5.00) mg/L Total Protein (6.4-8.9) g/dL Albumin (3.2-5.2) g/dL Globulin (2-4) g/dL Albumin/Globulin Ratio (1-3) Lipase (11.0-82.0) U/L Urine Color Urine Appearance Urine pH (5-9) Ur Specific [place] (1.010-1.030) Urine Protein (Negative) Urine Ketones (Negative) Urine Blood (Negative) Urine Nitrate (Negative) Urine Bilirubin (Negative) Urine Urobilinogen (Negative) Ur Leukocyte Esterase (Negative) Urine WBC (Auto) (Absent) Urine RBC (Auto) (Absent) Ur Squamous Epith Cells (Absent) Urine Bacteria (Absent) Urine Glucose (Negative) Result Diagrams: 02/21/17 06:32 02/21/17 06:31 Lab Statement: Any lab studies that have been ordered have been reviewed, and results considered in the medical decision making process. - Radiology Abd XR Xray Interpretation: Positive (See Comments) - IMPRESSION: 1. THERE IS A CALCIFICATION LATERAL TO THE L4 VERTEBRA ON THE LEFT SIDE POSSIBILITY REPRESENTING A URETERAL CALCULUS IF THIS IS OF CONCERN RECOMMEND A CT OF THE ABDOMEN AND PELVIS FOR FURTHER EVALUATION. 2. MODERATE TO LARGE AMOUNT RETAINED STOOL. Radiology Interpretation Completed By: Radiologist - CT A/P CT CT Interpretation: Positive (See Comments) - IMPRESSION: BILATERAL RENAL CALCULI. IN ADDITION THERE IS A 4 MM CALCULUS IN THE PROXIMAL LEFT URETER CAUSING MODERATE TO SEVERE HYDRONEPHROSIS. CT Interpretation Completed By: Radiologist GIGU Course/Dx - Course Course Of Treatment: Ms. John presented C/O nausea and vomiting and some vague diffuse abdominal pain after recent duodenal dilitation for 'stenosis'. Surprisingly she was found to have an obstructing kidney stone and an infected urine and she was admitted to the hospitalist service with a urological consultation. She was given IV fluids and antibiotics here. - Diagnoses Provider Diagnoses: Urinary tract obstruction by kidney stone, UTI (urinary tract infection) - Physician Notifications Discussed Care Of Patient With: Dr. Austin (Urology) at 15:38 -- Notified of patient's history. Dr. Hodge (Hospitalist) at 15:54 -- Notified of patient's history and will admit the patient into his services. - Critical Care Time Critical Care Time: 30-74 min Discharge - Discharge Plan Condition: Stable Disposition: ADMITTED TO [facility] documentation as recorded by the Rasheed newberry Matthew accurately reflects the service I personally performed and the decisions made by me, Florencio Price MD.
== END 2017-02-21 13:19 | disposition home or self-care (01) ==
LOC: ED 10:48 → OR 16:02 → MEDTELE 16:05
PROVIDERS: ADMIT Hospitalist; ATTEND Internal Medicine
PROC: BT1FZZZ Fluoroscopy of Left Kidney, Ureter and Bladder (ICD-10-PCS; 2017-02-20)
PROC: 0T778DZ Dilation of Left Ureter with Intraluminal Device, Via Natural or Artificial Opening Endoscopic (ICD-10-PCS; principal; 2017-02-20 17:00)
DX: N13.2 Hydronephrosis with renal and ureteral calculous obstruction (principal); K90.0 Celiac disease; I10 Essential (primary) hypertension; N17.9 Acute kidney failure, unspecified
CPT/HCPCS: 36415; 74000; 74020; 74176; 74420; 80048; 80053; 81003; 81015; 83605; 83690; 84484; 85025; 86140; 87086; 94760; 96365; 96375; 99291; C1876; G0378; J0696; J1170; J1580; J1885; J2250; J2405; J2704; J3010

== ENCOUNTER 2019-12-07 09:00 | Inpatient (IN) | payer MEDICARE, OTHER ==
[2019-12-07] MEDS ORDERED: NS 0.9% 1000 ML** 1,000 ML IV ONE (09:02)
--- NOTE | 2019-12-07 09:04 | ED ---
Neurological HPI - HPI Summary HPI Summary: Patient is a 79-year-old female presents to emergency department by her . Patient states less than 1 hour ago she was sitting talking to her sons when she had difficulty forming words. Patient states she knew what she wanted to say but was unable to get them out. Patient without any other complaints. Patient denies headache or vision changes. Denies weakness or paresthesias to arms or legs. No chest pain or shortness of breath. Patient states her symptoms have improved and she feels like she is back to her normal. Patient has never had anything like this before. Patient is not on any anticoagulation. Patient without any head injury. Katya Almaraz called: 9:00 am 9:08am Neuro at [facility] - transfer center - requesting to know read when available, image to [facility] 9:18 CT neg [facility] radiology [facility] 2 10:02 - Dr. Puentes s/p telestroke - CTA head and neck, ASA admit unless critical stenosis - History of Current Complaint Stated Complaint: CODE ROMARIO Time Seen by Provider: 12/07/19 09:02 Hx Obtained From: Patient - Additional Pertinent History Primary Care Physician: [id number] - Allergy/Home Medications Allergies/Adverse Reactions: Allergies Allergy/AdvReac Type Severity Reaction Status Date / Time wheat Allergy Severe vomiting Uncoded 02/26/17 09:46 and diarrhea PMH/Surg Hx/FS Hx/Imm Hx Endocrine/Hematology History: Denies: Hx Diabetes, Hx Anemia Cardiovascular History: Reports: Hx Hypertension - only when in hospital, goes back to normal when home, no meds Denies: Hx Congestive Heart Failure Respiratory History: Reports: Hx Pneumonia - (as a baby) GI History: 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 4 duodenal stretches from december 2016 to January 2017 Hx Anesthesia Reactions: No - Immunization History Date of Tetanus Vaccine: Unknown Infectious Disease History: Reports: Hx Hepatitis - hepatitis 2 as a ,, History Other Infectious Disease - Hx of meningitis Denies: Hx Clostridium Difficile, Hx Human Immunodeficiency Virus (HIV), Hx of Known/Suspected MRSA, Hx Shingles, Hx Tuberculosis, Hx Known/Suspected VRE, Hx Known/Suspected VRSA - Family History Family History: FHx of liver cancer - Father - Social History Alcohol Use: None Substance Use Type: Reports: None Smoking Status (MU): Never Smoked Tobacco Review of Systems Constitutional: Negative Eyes: Negative ENT: Negative Cardiovascular: Negative Respiratory: Negative Gastrointestinal: Negative Genitourinary: Negative Musculoskeletal: Negative Skin: Negative Positive: Numbness, Slurred Speech - resolved Psychological: Normal All Other Systems Reviewed And Are Negative: Yes Physical Exam - Summary Physical Exam Summary: Vital Signs Reviewed: Yes A+Ox3, no distress, speaking full easy sentences Eyes: Conjunctiva Clear, SANTOS. EOM intact and full, left medial visual field cut ENT: Hearing grossly normal TM x 2 clear, mmoist, uvula midline, no exudate, no erythema Neck: Positive: Supple Respiratory: Positive: No respiratory distress, No accessory muscle use + CTA throughout no w/r Cardiovascular: RRR nl s1, s2 no m/r CBT <2 sec abd soft + BS nt/nd no guarding, no distension Musculoskeletal Exam: MCCOY x 4 without difficulty Strength Intact, ROM Intact Neurological: Positive: Alert, CN 2-12 - left medial visual field cut + FNF b/l + heel/mustafa b/l 5/5 abduction, flex/ext elbow, wrist against resistant 5/5 SLE, flex/ext knee, ankle + great toe extension + gross decreased sensation left side face and upper chest wall See NIH = 2 Psychological: Positive: Normal Response To examiner Skin: Positive: no rash, no ecchymosis, Procedures - Sedation Patient Received Moderate/Deep Sedation with Procedure: No Diagnostics - Laboratory Result Diagrams: 12/07/19 09:15 12/07/19 09:15 Lab Statement: Any lab studies that have been ordered have been reviewed, and results considered in the medical decision making process. - EKG No standard instances Cardiac Rate: NL - 78 12/07/19 9:38am EKG Rhythm: Sinus Rhythm Ectopy: PACs NIH Scale - NIH Scale Level of Consciousness: Alert/Keenly Responsive Ask Patient the Month and His/Her Age: Both Correct Ask Pt to Open/Close Eyes and [employer]/Release Non-Paretic Hand: Both Correctly Best Gaze (Only Horizontal Eye Movement): Normal Visual Field Testing: Partial Hemianopia Facial Paresis-Pt to Smile & Close Eyes or Grimace Symmetry: Normal/Symmetrical Motor Function - Right Arm: No Drift-Holds 10 Seconds Motor Function - Left Arm: No Drift-Holds 10 Seconds Motor Function - Right Leg: No Drift-Holds 10 Seconds Motor Function - Left Leg: No Drift-Holds 10 Seconds Sensory (Use Pinprick to Test Arms/Legs/Trunk/Face): Pinprick Less on Affected Best Language (Describe Picture, Name Items): No Aphasia Dysarthria (Read Several Words): Normal Extinction and Inattention: No Abnormality Re-Evaluation - Re-Evaluation First Eval Re-Evaluation Time: 09:20 Comment: BP improved NIH 2. awaiting telestroke Second Eval Comment: telestroke complete. No TPA at this time. CTA head and neck. ASA 324mg. admit (or transfer if critical stenosis). pt comfortable and jillian greement with plan Third Eval Re-Evaluation Time: 11:32 Comment: no change. VSS. Dr Le reviewed CT - okay to remain [facility]. Dr. Day saw pt in ED - okay for pt to remain [facility]. d/w Dr. Burns - agreeable to admission. Pt updated and comfortable with plan Course/Dx - Course Course Of Treatment: Patient presents to urgent care with sudden onset of speech difficulty this morning. Patient states she was at breakfast when symptoms started. This lasted briefly. Started approximately one hour ago. Patient states she is back at her baseline upon arrival at her ED. Patient without any complaints. Patient without a history of TIA. Patient with a history of hypertension but is not currently on medication. On exam vital signs are stable. Katya barlow was called immediately upon triage. Patient's NIH score of 2 when she came back given to her left visual field cut medially as well as sensation changes left face and upper shoulder. Will contact strong for tele-stroke. Patient in agreement with plan. - Diagnoses Provider Diagnoses: Episode of change in speech, Neurological deficit, transient - Physician Notifications Instructed by Provider To: Admit As Inpatient - Critical Care Time Critical Care Time: 30-74 min Discharge ED - Sign-Out/Discharge Documenting (check all that apply): Patient Departure - Discharge Plan Condition: Improved Disposition: ADMITTED TO [facility] Referrals: Ryann Horton MD [Primary Care Provider] - - Billing Disposition and Condition Condition: IMPROVED Disposition: Admitted to [facility]
[2019-12-07 09:27] LABS: ABS Lymphocytes 1.4 10^3/ul (1.0-4.8); ABS Monocytes 0.4 10^3/ul (0-0.8); ABS Neutrophils 3.6 10^3/ul (1.5-7.7); Eosinophil % 0.5 %; Hematocrit 40 % (35-47); Hemoglobin 13.5 g/dL (12.0-16.0); Lymphocyte % 25.2 %; Mean Corpuscular HGB Conc 34 g/dL (31-36); Mean Corpuscular Hemoglobin 32 pg (27-31); Mean Corpuscular Volume 93 fL (80-97); Mean Platelet Volume 9.6 fL (7.4-10.4); Platelet Count 169 10^3/uL (150-450); Red Blood Count 4.26 10^6 /uL (3.70-4.87); Red Cell Distribution Width 14 % (10-15); White Blood Count 5.5 10^3/uL (3.5-10.8)
[2019-12-07 09:34] LABS: Activated Partial Thrombo Time 26.7 seconds (26.0-38.0); INR 1.02 (0.82-1.09)
[2019-12-07 09:38] LABS: Calcium 8.9 mg/dL (8.6-10.3); Potassium 3.7 mmol/L (3.5-5.0); Total Bilirubin 0.5 mg/dL (0.2-1.0)
[2019-12-07 09:44] LABS: Albumin/Globulin Ratio 1.8 (1-3); BUN/Creatinine Ratio 17.9 (8-20); EGFR African American 56.8 (>60); EGFR Non-African American 46.9 (>60); Globulin 2.2 g/dL (2-4); HDL Cholesterol 43.9 mg/dL; Total Protein 6.2 g/dL (6.4-8.9)
[2019-12-07] MEDS ORDERED: Aspirin 81 mg CHEW TAB* 81 MG TAB.CHEW PO ONE (10:08)
[2019-12-07] MEDS ORDERED: Iodixanol* (CONTRAST) 320 MG/ML 100 ML SDV IV ONE (10:20)
[2019-12-07 11:28] LABS: Urine Appearance Clear; Urine Bilirubin Negative (Negative); Urine Blood Negative (Negative); Urine Color Straw; Urine Glucose Negative (Negative); Urine Ketones Negative (Negative); Urine Nitrite Negative (Negative); Urine Protein Negative (Negative); Urine Specific Gravity 1.023 (1.010-1.030); Urine Urobilinogen Negative (Negative)
[2019-12-07] MEDS ORDERED: Acetaminophen TAB* 325 MG PO PRN (11:28)
[2019-12-07] MEDS ORDERED: Al Hydrox/Mg Hydrox/Simet LIQ* 30 ML UDC PO PRN (11:28)
[2019-12-07] MEDS: Clopidogrel TAB* 75 MG PO SCH (13:04)
[2019-12-07] MEDS: Enoxaparin(*) 40 MG/0.4 ML SYR SUBCUT SCH (13:04)
[2019-12-07] MEDS ORDERED: NIFEdipine CAP* 10 MG PO ONE (13:15)
--- NOTE | 2019-12-07 15:26 | HP ---
CC: Dr. Horton * HISTORY AND PHYSICAL: DATE OF ADMISSION: 12/07/19 TIME OF ADMISSION: 12:30 p.m. CHIEF COMPLAINT: Difficulty speaking. HISTORY OF PRESENT ILLNESS: This is a 79-year-old woman with a history of glaucoma, who presents to the emergency department after difficulty speaking at breakfast this morning. She woke up around 7 a.m. and came downstairs for breakfast with her partner and son and initially seemed normal and then prison into breakfast she could not get a clear sentence out. She was saying words, but they were jumbled and not making any sense. She was aware of this and became quite frustrated that she was unable to get a sentence out. They observed it for a few more minutes and decided she should come to the emergency department. Her partner, Donato drove her to the emergency room, where a roberth barlow was called. She received aspirin and telestroke was completed with Dr. Le from [facility]. Her NIH stroke scale at that time was 2. Her symptoms gradually improved during her time in the emergency department and when I come to see her with her partner Donato, she feels that she is back to normal and Donato agrees that she is at her baseline. She has no complaints at this time. PAST MEDICAL HISTORY: 1. She describes what sounds like a gastric outlet obstruction and she gets it "stretched out" every few years at [place]. 2. Glaucoma. PAST SURGICAL HISTORY: Hysterectomy. HOME MEDICATIONS: 1. Aspirin 81 mg almost daily for backaches. 2. Tetrahydrozoline eye drops in both eyes daily. FAMILY HISTORY: Her dad had lung cancer. There is no family history of neurologic disease. SOCIAL HISTORY: She is a never smoker. She does not drink alcohol. She lives with her public speaking instructor Donato. 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 REVIEW OF SYSTEMS: She denies any recent illness, visual change, syncope, chest pain, shortness of breath, fevers. She has a slight headache at this time. PHYSICAL EXAMINATION GENERAL: Alert, well-appearing, elderly female in no distress. VITAL SIGNS: Temperature 97.4, heart rate 81, respiratory rate 20, pulse ox 96 % on room air, blood pressure 178/88. HEENT: Her pupils are 3 mm bilaterally and reactive to light. She has arcus senilis. Oral mucosa is moist. NECK: No JVP. No adenopathy. No carotid bruits. LUNGS: Clear bilaterally. CHEST: She is in a regular rate and rhythm with no murmurs. ABDOMEN: Soft, nontender, and nondistended. No guarding or rebound. EXTREMITIES: No edema, rashes, or ulcers. NEUROLOGIC: She is oriented to person and place, but cannot tell me the year or the President. She seems to have difficulty remembering it though and not difficulty finding the words. She is able to name objects appropriately. Her coordination is intact. Her speech is fluent and appropriate and accurate. Her strength is 5/5 in all extremities. DIAGNOSTIC STUDIES/LAB DATA: White blood cells 5.5, hemoglobin 13.5, platelets 169. INR 1.02. Sodium 138, potassium 3.7, chloride 105, bicarb 27, BUN 20, creatinine 1.1, glucose 188. Lactic acid 1.9. LDL 111, cholesterol 174. Urinalysis is unremarkable. Imaging: A brain CT showed no intracranial mass or hemorrhage identified. A CTA shows plaque noted in origins of both internal carotid arteries, less than 50% stenosis noted bilaterally. Very tortuous common carotid arteries are noted near its origin bilaterally with minimal plaque at the common carotid artery origin. No evidence of internal carotid artery dissection. Vertebral arteries demonstrate left dominant vertebral artery, appears patent. Intracranial circulation demonstrates no aneurysmal dilation or branch occlusion. Chest x-ray shows no active cardiopulmonary disease. ASSESSMENT AND PLAN: This is a 79-year-old woman with a history of glaucoma, who presents to the emergency department with sudden onset of speech difficulty this morning and is now returned to normal. 1. Transient ischemic attack. Her symptoms have resolved completely at this time. TPA was deferred by the telestroke physician. She has no known history of cardiac disease or arrhythmias. I will monitor her on telemetry, get an echocardiogram with a bubble study tomorrow, get an MRI for tomorrow, and consult with Dr. Day who has already seen the patient in the emergency department. I will add Plavix to her aspirin. The plan will be for her to continue aspirin and Plavix for 30 days and after 30 days stop the aspirin and continue Plavix since she was already on aspirin once this event occurred. I am starting her on a statin for secondary prevention and adding on hemoglobin A1c to her emergency room labs. I have explained the importance of secondary prevention to Barbara and her partner and they expressed good understanding of the goals of care at this time. 2. Glaucoma. Continue home eye drops. 3. DVT prophylaxis. Lovenox. 4. Code status. I discussed code status with Barbara and she is uncertain what she wants at this time. We discussed various options and she is not ready to make the decision. I encouraged her to think about it and to let us know when she comes up with a decision and we will be happy to talk with her more about it. [id number]/[facility] #: [id number] SERENA
[2019-12-07] MEDS: Atorvastatin* 40 MG TAB PO SCH (15:59)
--- NOTE | 2019-12-07 16:23 | CONS ---
CC: Dr. Ryann Horton * CONSULTATION REPORT: DATE OF CONSULT: 12/07/19 LOCATION: She is currently in ED bed 19. PRIMARY CARE PROVIDER: Dr. Ryann Horton. REASON FOR CONSULT: Slurred speech. HISTORY OF PRESENT ILLNESS: Ms. John is a very nice 79-year-old, right- handed female, who has a history in the past of celiac disease and duodenal stenosis, reported history of hypertension, although the patient denies no prior history of heart attacks or stroke. She does note a history of several head traumas when she was a child and an episode years ago where she came confused for few seconds and then it resolved but no reported seizure activity. She was in her usual state of health when this morning she was sitting around the breakfast table and her significant other noted that she was having trouble speaking. She remembers knowing what she wanted to say and understanding everybody but having a hard time getting words out. Her son was apparently there with her. Based on this, there was concern that she might be having a stroke. There was no reported facial droop or numbness, tingling, or weakness per the patient. The significant other state that there was no facial droop at the time. The patient denies any palpitations, chest pain, numbness, tingling, other weakness. The patient denies any headache at the time. No nausea, vomiting, diarrhea, constipation, recent fevers, chills. She has never had any symptoms similar to this in the past. She has been in her usual state of health. The symptoms apparently lasted 30 to 45 minutes. By the time she got to the ER, her symptoms were improving. Her initial NIH was 2. Stroke UR was consulted for possible code barlow given the fact that the patient did arrive within an hour of symptoms but it was felt that because of her improving symptoms and low NIH that she was not a candidate for TPA. Head CT showed no acute abnormalities. Subsequent CT angiogram of the head and neck showed less than 50% stenosis noted bilaterally in the internal carotid arteries with plaques at the origins, tortuous common carotid arteries are noted near the origin bilaterally with minimal plaque at the common carotid artery margins. The vertebral arteries demonstrate left dominant vertebral artery, which appeared patent. No intracranial aneurysms, dilatation, or branch occlusions are appreciated. The patient does note that she frequently takes aspirin several a day for her back pain. She otherwise notes no other medications. She takes eye drops but otherwise is not on any oral medication. She denies any recent high blood pressure. She denies history of diabetes. She is a nonsmoker and no prior history of strokes. Currently, the patient feels that she is back to her baseline. She is not having any trouble with her speech. Her significant other does state that she snores at times. She has never been diagnosed with sleep apnea. She does note some daytime somnolence at times. PAST MEDICAL HISTORY: As noted above. PAST SURGICAL HISTORY: Hysterectomy. MEDICATIONS AT HOME: She has eye drops, otherwise no medications. She does take [id number] aspirin regularly. ALLERGIES: No known drug allergies. FAMILY HISTORY: Father with coronary artery disease. SOCIAL HISTORY: No tobacco, alcohol, or drug use. She is retired from [employer]. 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 No recent travel. She has a son, who is her decision maker. REVIEW OF SYSTEMS: Review of systems in 14 organ systems as noted above, otherwise negative. PHYSICAL EXAM: Temp of 97.4, blood pressure 147/107, pulse of 93, respiratory rate of 16, O2 saturation 96%. General: She is a well-nourished, well- developed female, in no acute distress. She is pleasant, well dressed, well groomed. HEENT: She is normocephalic, atraumatic. Sclerae are anicteric. Mucous membranes are moist. Oropharynx is clear. Nares are patent. Neck is supple. No thyromegaly. No carotid bruits. No meningismus. Chest: Clear to auscultation bilaterally. Cardiovascular: Regular rate and rhythm. Abdomen is nontender, nondistended. Extremities: No clubbing, cyanosis, or edema. Her skin is warm and dry. On neurologic exam, she is awake, alert, and oriented x3. Her speech is fluent. There is no dysarthria. Repetition is intact. Recall is intact. Vocabulary is intact. Her mood is dysthymic. Affect mood congruent. Cranial Nerves: Pupils are equal, round, and reactive to light and accommodation. Extraocular muscles are intact with no nystagmus. No diplopia. No ptosis appreciated. Facial sensation is intact to light touch. Facial symmetry, she has a slight flattening of her left nasolabial fold, which does not particularly appear out of the ordinary per her significant other. Her hearing is intact bilaterally. Palate raises symmetrically. Tongue is midline. Motor Exam: She is spontaneously moving all extremities antigravity. There is no drift appreciated. Strength is 5/5 throughout with normal tone and bulk. Sensation is intact to light touch and pinprick throughout. No focal deficits. She has no neglect or extinguishing. Jojyob-ni-jfyg and rapid alternating movements are intact without dysdiadochokinesia or ataxia. Heel-to- mustafa is intact. DTRs are 2+ and symmetric with biceps, brachioradialis, patella , 1+ at the ankles, withdraw Babinski bilaterally. Gait: She is able to ambulate without difficulty. She is not dizzy or unsteady on her feet. DIAGNOSTIC STUDIES/LAB DATA: Lab work includes CBC with diff with MCH of 32, otherwise normal. INR of 1.02. PTT of 26.7. Chemistry: She has a creatinine of 1.12, glucose of 188, repeat glucose of 167, lactic acid of 1.9, total protein of 6.2. Triglyceride 97, cholesterol 174, LDL 111, HDL 43.9. Urine is pending. Imaging: As noted above. She also had a chest x-ray done today, which showed no active cardiopulmonary disease. ASSESSMENT AND PLAN: Ms. John is a 79-year-old, right-handed female with no known significant cardiac risk factors or history of stroke, on no significant home medications other than eye drops and she notes taking aspirin regularly for her back pain, presents to the hospital with acute onset of some speech difficulty, slurred speech and word findings difficulties that lasted for 30 to 45 minutes and then subsequently resolved. Initial NIH was 2 but subsequently she has improved and current NIH is 1 for a very subtle left lower facial droop. On any event, she has improved. Her speech has returned back to her baseline. [facility] was consulted. CT of the head was done that was negative. CTA of the head and neck showed no critical stenosis or other abnormalities. Based on the findings, the concern is that the patient may have had a small stroke versus transient ischemic attack. The plan is to admit the patient. The patient will undergo an MRI of the brain to look for any evidence of new stroke. The patient will have an echocardiogram to look for any cardiac sources and will be placed on telemetry to look for any evidence of arrhythmia. On admission, the patient's blood glucose is elevated and I would check a hemoglobin A1c to look for developing diabetes. She has never been diagnosed. She needs to be monitored carefully on telemetry. Assuming MRI is negative, I think we can treat her blood pressure aggressively tonight. I would let her blood pressure run moderate in the 150-160/90 range given the fact that we do not know for certain that she has not had a small stroke. I would not let it run much above that though at this point and can treat p.r.n. The flattening of the left nasolabial fold, it is unclear whether this is old. The significant other thinks that she appears to be at her baseline. She is a nonsmoker. The patient should be admitted to telemetry with neuro checks. We discussed the fact that she will need to go home on dual antiplatelet therapy for 30 days because she has been taking aspirin regularly and she had these symptoms. I would suggest that we treat her with baby aspirin and Plavix for 30 days and then stop the aspirin and continue the Plavix. I also think given her elevated cholesterol that she would benefit from a statin and you can start atorvastatin 40 mg at night with goal LDL less than 70 at this point. I think she might benefit from an outpatient 30-day event monitor to look for any evidence of atrial fibrillation. She will also be monitored in the hospital closely for any evidence of atrial fibrillation. Again she needs to be followed for her elevated blood sugars. At this point, she is not having any problem swallowing. I think it is okay if she passes a bedside swallow to advance her diet and we will follow up the results of the MRI and echocardiogram tomorrow. I will be off service tomorrow but I will sign out her case to Dr. Cool, who will be taking over the service. Thank you for the opportunity to participate in the care of this very interesting patient. [id number]/[facility] #: [id number] SERENA
[2019-12-07] MEDS: TETRAHYDROZOLINE 0.05% BOTH EYES SCH (19:45)
[2019-12-08 06:52] LABS: ABS Eosinophils 0.1 10^3/ul (0-0.6); ABS Monocytes 0.5 10^3/ul (0-0.8); ABS Neutrophils 2.7 10^3/ul (1.5-7.7); Eosinophil % 1.2 %; Hematocrit 38 % (35-47); Hemoglobin 12.8 g/dL (12.0-16.0); Lymphocyte % 23.2 %; Mean Corpuscular HGB Conc 34 g/dL (31-36); Mean Corpuscular Hemoglobin 32 pg (27-31); Mean Corpuscular Volume 94 fL (80-97); Mean Platelet Volume 9.9 fL (7.4-10.4); Platelet Count 159 10^3/uL (150-450); Red Blood Count 4.04 10^6 /uL (3.70-4.87); Red Cell Distribution Width 14 % (10-15); White Blood Count 4.2 10^3/uL (3.5-10.8)
[2019-12-08 06:59] LABS: BUN/Creatinine Ratio 16.3 (8-20); Calcium 8.8 mg/dL (8.6-10.3); EGFR Non-African American 63.7 (>60)
[2019-12-08] MEDS: Clopidogrel TAB* 75 MG PO SCH (10:01)
[2019-12-08] MEDS: Aspirin 81 mg CHEW TAB* 81 MG TAB.CHEW PO SCH (10:02)
[2019-12-08] MEDS: TETRAHYDROZOLINE 0.05% BOTH EYES SCH ×2 (10:03→20:37)
--- NOTE | 2019-12-08 12:15 | ECHO ---
*[facility]* [place] [address] Fax #: [phone] Transthoracic Echocardiogram Patient: Barbara John : 1940 Study Date: 12/08/2019 Age: 79 Gender: F HR: 81 bpm Height: 66 in /167.6 cm BSA: 1.96 m^2 Weight: 190.6 lb /86.6 kg BMI: 30.8 kg/m^2 *Marketing Pr Intern: * Danette Villalobos RDCS RN *Referring Physician: * Celestina Burns *Reading Physician: * Maxwell Monzon MD Indications: TIA. History: Risk factors: Obese. Conclusions Summary: - Left ventricle: Systolic function is normal. The estimated ejection fraction is 55-60%. Wall motion is normal; there are no regional wall motion abnormalities. - Right ventricle: Systolic function is normal. - Atrial septum: Bubble study was negative on Images 117-118, though the quality was suboptimal. - Mitral valve: There is trace regurgitation. - Aortic valve: The findings are consistent with mild stenosis. There is mild to moderate regurgitation. The peak systolic velocity is 1.85 m/sec. The mean systolic gradient is 7.0 mm Hg. The peak systolic gradient is 14.0 mm Hg. The LVOT to aortic valve VTI ratio is 0.55. The valve area by the velocity-time integral method is 1.70 cm^2. The regurgitation pressure half-time is 464 ms. - Tricuspid valve: There is trace to mild regurgitation. - Pulmonary arteries: Systolic pressure is within the normal range, estimated to be 33 mm Hg. - Study data: No prior study is available for comparison. Study data: Transthoracic echocardiogram. Procedure: Transthoracic echocardiography was performed. Image quality was fair. The study was technically limited due to body habitus. A bubble study was performed using agitated normal saline on Images 117 and 118. Complete 2D, spectral Doppler, and color flow Doppler. Location: Bedside. Patient status: Observation. Patient room number: 444-02. No prior study is available for comparison. Rhythm: Normal sinus rhythm. Periodic runs of sinus tachycardia to 110 beats per minute during the exam. Findings Left ventricle: The cavity size is mildly reduced. Wall thickness is mildly to moderately increased. Systolic function is normal. The estimated ejection fraction is 55-60%. Wall motion is normal; there are no regional wall motion abnormalities. There is no consistent Doppler evidence of clinically significant diastolic dysfunction. Right ventricle: The cavity size is normal. Systolic function is normal. Left atrium: The atrium is normal in size. Right atrium: The atrium is normal in size. Atrial septum: No defect or patent foramen ovale is identified by color Doppler. Bubble study was negative on Images 117-118, though the quality was suboptimal. Mitral valve: The Mitral valve annulus appears mildly calcified. The leaflets are mildly thickened. There is no evidence of stenosis. There is trace regurgitation. Aortic valve: The annulus is mildly calcified. The valve is trileaflet. The leaflets are mildly thickened with mildly reduced excursion. The findings are consistent with mild stenosis. There is mild to moderate regurgitation. Tricuspid valve: The valve is structurally normal. There is no evidence of stenosis. There is trace to mild regurgitation. Pulmonic valve: The valve is structurally normal. There is no evidence of stenosis. There is mild regurgitation. Aorta: Aortic root: The aortic root is not dilated. Ascending aorta: The ascending aorta is mildly dilated at 3.6 cm. Aortic arch: The aortic arch is not dilated. Pericardium: A prominent pericardial fat pad is present. There is no significant pericardial effusion. Pulmonary arteries: The main pulmonary artery is normal-sized. Systolic pressure is within the normal range, estimated to be 33 mm Hg. Systemic veins: Inferior vena cava: Not well visualized. Measurements Left ventricle Value Ref Aortic valve Value Ref DELMI, LAX (L) 3.3 cm 3.8 - 5.2 Jhoan diam, ED 2.0 cm ---- ESD, LAX 2.4 cm 2.2 - 3.5 Peak v, S 1.85 m/sec ---- FS, LAX 28 % 27 - 45 VTI, S 37.6 cm ---- PW, ED (H) 1.1 cm 0.6 - 0.9 Mean grad, S 7.0 mm Hg ---- IVS/PW, ED 1.32 Peak grad, S 14.0 mm Hg ---- E', lat jhoan, TDI (L) 7.6 cm/sec >=10.0 LVOT/AV, VTI ratio 0.55 --- - E/e', lat jhoan, 9 VAMSI, VTI 1.70 cm^2 ---- TDI VAMSI, Vmax 1.71 cm^2 ---- E', med jhoan, TDI (L) 5.2 cm/sec >=7.0 AR peak v 4.58 m/sec --- - E/e', med jhoan, 14 AR PHT 464 ms ---- TDI AR peak grad 84 mm Hg ---- E', avg, TDI 6.4 cm/sec E/e', avg, TDI 11 <=14 Mitral valve Value Ref Peak E 0.7 m/sec ---- LVOT Value Ref Peak A 1.1 m/sec ---- Diam, S 2.00 cm Decel time 250 ms ---- Area 3.1 cm^2 Peak E/A ratio 0.6 ---- Peak esa, S 1.01 m/sec VTI, S 20.7 cm Pulmonic valve Value Ref Mean grad, S 2 mm Hg Peak v, S 0.83 m/sec ---- SV 65 ml Peak grad, S 3.0 mm Hg ---- SV/bsa 33 ml/m^2 Tricuspid valve Value Ref Ventricular septum Value Ref Peak RV-RA grad, S 25 mm Hg ---- IVS, ED (H) 1.4 cm 0.6 - 0.9 Max TR esa 2.5 m/sec ---- Right ventricle Value Ref Aortic root Value Ref DELMI, LAX 2.7 cm Root diam 3.4 cm <4.1 DELMI minor ax, A4C 3.5 cm 1.9 - 3.5 mid Ascending aorta Value Ref Pressure, S 33 mm Hg AAo AP diam, S 3.6 cm ---- Left atrium Value Ref Aortic arch Value Ref AP dim, ES 3.40 cm 2.70 - Arch diam 2.5 cm ---- 3.80 ML dim, A4C 4.1 cm Decending aorta Value Ref SI dim, A4C 4.4 cm Ed peak esa 0.4 m/sec ---- Vol/bsa, ES, 1-p 20 ml/m^2 11 - 40 A4C Pulmonary artery Value Ref Vol/bsa, ES, A/L 29 ml/m^2 16 - 34 Pressure, S 30.0 mm Hg ---- Right atrium Value Ref ML dim, ES, A4C 3.9 cm 2.6 - 4.4 SI dim, ES, A4C 4.3 cm 3.4 - 5.3 Estimated RAP 8 mm Hg Legend: (L) and (H) dominique values outside specified reference range. Prepared and electronically signed by Maxwell Monzon MD 12/08/2019 12:15
[2019-12-08] MEDS: Enoxaparin(*) 40 MG/0.4 ML SYR SUBCUT SCH (12:19)
[2019-12-08] MEDS: Atorvastatin* 40 MG TAB PO SCH ×2 (15:50→17:28)
[2019-12-08] MEDS ORDERED: hydrALAZINE IV* 20 MG/ML VIAL IV SLOW PU ONE (17:07)
--- NOTE | 2019-12-08 17:07 | PN ---
Hospitalist Progress Note Date of Service: 12/08/19 Did d/c paperwork however bp noted to be 173/92. Repeat BP after 30 mins noted to be 180/72. Will hold discharge.Monitor in hospital. Treat IV hydralazine low dose 1 time and then eval trend and add PO. Hypertension risk factor for TIA/ Stroke.Unclear if pt has baseline hypertension not on meds. Can be acutely high in tia/stroke setting and allow higher bps to allow brain perfusion. no stroke on mri.will keep 150s-0160s for now and then treat more agressively. avoid >25- 30% reduction. sec hypertension w/u with bp persistently high
--- NOTE | 2019-12-08 21:04 | DS ---
DISCHARGE SUMMARY: DATE OF ADMISSION: 12/07/19 DATE OF DISCHARGE: 12/08/19 PRIMARY DIAGNOSIS: Transient ischemic attack. SECONDARY DIAGNOSES: 1. Gastric outlet obstruction. 2. Glaucoma. 3. Hysterectomy. HOSPITAL COURSE: A 79-year-old female with a history of glaucoma. No significant coronary artery disease, came into the hospital after some word finding difficulty, reports that her words were jumbled up. This lasted a few minutes. Initial stroke scale was noted to be 2. Please refer to the history and physical dictated by Dr. Burns yesterday for full details. The patient is on aspirin 81 mg at home for backaches. The patient had a brain CT done in the ER on 12/07/19, which showed no intracranial mass or hemorrhage. The patient had a chest x-ray done on 12/07/19, which showed no evidence of cardiopulmonary disease. The patient had a CTA head and neck done on 12/07/19, which showed plaque in the origin of both internal carotid arteries, less than 50% stenosis noted bilaterally. Very tortuous common carotid arteries are noted near its origin bilaterally with minimal plaque at the origin of the common carotid arteries. Vertebral arteries demonstrates left dominant vertebral artery, which appeared patent. Intracranial circulation demonstrates no aneurysmal dilation or branch occlusion. Neurology was consulted for possible TIA and the patient was seen by Dr. Day. He recommended an MRI of the brain for further evaluation and echocardiogram with bubble study for stroke/TIA evaluation. In addition, he recommended dual antiplatelet therapy with aspirin and Plavix for 30 days as the patient has been taking aspirin regularly and had these symptoms. He recommended aspirin 81 mg and Plavix 75 mg at time of discharge for 30 days and then to stop the aspirin and continue the Plavix. Also for her elevated cholesterol, he recommended adding atorvastatin 40 mg at nighttime with goal LDL less than 70. The patient does work with PT and OT and has done well. The patient's word finding difficulty has resolved. The patient doing well today. The patient had a brain MRI done, which showed no acute intracranial abnormality, myoclonic small vessel ischemic disease. The patient also had a transthoracic echocardiogram done, which showed an ejection fraction of 55% to 60%, wall motion normal. No regional wall motion abnormalities. Mild aortic stenosis. Please refer to the dictated echocardiogram report for full details. Overall, the patient's condition noted to be stable and the patient's neurologic deficits has resolved at this time. The patient will be discharged home. Counseled the patient on TIA. DISCHARGE INSTRUCTIONS: 1. The patient to continue aspirin and Plavix for 30 days and then stop the aspirin and continue the Plavix per neurology recommendation. 2. The patient has been started on atorvastatin 40 mg at bedtime with a goal LDL of less than 70. 3. The patient has been monitored in the hospital and the patient does not have any evidence of atrial fibrillation, can consider outpatient Holter if further evaluation is needed for underlying atrial fibrillation per neurology recommendation. 4. The patient to follow up with Dr. Day routinely as an outpatient in 1 to 2 months. 5. The patient to follow up with her PCP in a week. Vitals and labs noted to be stable at the time of discharge. Temperature 97.8, pulse 80, respiratory rate 18, oxygen saturation 96% on room air, blood pressure 158/80. Other blood pressure readings have been 133/75. PHYSICAL EXAMINATION: HEENT: NC/AT. Heart: S1, S2 present. Regular at the time of exam. Lungs: Clear to auscultation. Abdomen: Soft. Extremities: No edema. Neuro: Alert, oriented x3. No cranial nerve deficits noted. Good strength in bilateral lower and upper extremities. LABORATORY DATA: WBC 4.2, hemoglobin 12.8, hematocrit 38, platelets noted to be 159. Sodium 138, potassium 4, chloride 108, CO2 26, BUN 14, creatinine 0.86. LDL 111, HDL 43, cholesterol 174, triglycerides 97. The patient will be discharged home. DISPOSITION: Home. CONDITION: Stable. MEDICATION LIST: 1. Eye drops to both eyes b.i.d. 2. Plavix 75 mg p.o. daily. 3. Atorvastatin 40 mg p.o. daily. 4. Aspirin 81 mg p.o. daily. FOLLOWUP INSTRUCTIONS: As above. TIME SPENT: Total time spent on discharge is equal to 50 minutes. [id number]/[facility] #: [id number] MTDD
[2019-12-09 06:16] LABS: ABS Eosinophils 0.1 10^3/ul (0-0.6); ABS Lymphocytes 1.4 10^3/ul (1.0-4.8); ABS Monocytes 0.5 10^3/ul (0-0.8); Eosinophil % 1.3 %; Hematocrit 37 % (35-47); Hemoglobin 12.7 g/dL (12.0-16.0); Lymphocyte % 35.7 %; Mean Corpuscular HGB Conc 34 g/dL (31-36); Mean Corpuscular Hemoglobin 32 pg (27-31); Mean Corpuscular Volume 93 fL (80-97); Mean Platelet Volume 9.4 fL (7.4-10.4); Platelet Count 166 10^3/uL (150-450); Red Blood Count 4.02 10^6 /uL (3.70-4.87); Red Cell Distribution Width 14 % (10-15)
[2019-12-09 06:30] LABS: Calcium 8.9 mg/dL (8.6-10.3)
[2019-12-09 06:35] LABS: BUN/Creatinine Ratio 16.7 (8-20); EGFR African American 73.1 (>60); EGFR Non-African American 60.4 (>60)
[2019-12-09] MEDS ORDERED: amLODIPine TAB* 5 MG PO ONE (07:00)
[2019-12-09 07:33] VITALS: BP 153/77
[2019-12-09] MEDS: Clopidogrel TAB* 75 MG PO SCH (08:01)
[2019-12-09] MEDS: Aspirin 81 mg CHEW TAB* 81 MG TAB.CHEW PO SCH (08:01)
[2019-12-09] MEDS: TETRAHYDROZOLINE 0.05% BOTH EYES SCH (08:02)
--- NOTE | 2019-12-09 13:33 | DS ---
DISCHARGE SUMMARY: DATE OF ADMISSION: 12/07/19 DATE OF DISCHARGE: 12/09/19 Please refer to the detail discharge summary dictated yesterday for her TIA for full details. 1. The patient was going to be discharged yesterday; however, at the time of discharge the patient's blood pressure was noted to be elevated at 173/92, repeat blood pressures 30 minutes were still note d to be high at 180/72. The patient was also noted to have a mild headache with this. In light of t his and the fact that she just had a TIA and may also have underlying hypertension that the patient w as not aware of as she has had symptoms of headaches in the past, for better monitoring the patient w as placed in the hospital for her hypertension workup. The patient also had some workup for secondar y hypertension ordered including aldosterone, renin and metanephrines. These have been drawn and cur rently are pending. The patient to follow up results of this with her primary care doctor. Renal art laila duplex was not done in the hospital and can be considered as an outpatient if her blood pressure continues to remain high. With respect to her blood pressure, the patient was given IV hydralazine y day and started on low- dose amlodipine at 5 mg. With low dose amlodipine, the patient's blood pressure appears to be controlled today in the 140s to 150s range and the patient's symptoms have res olved. Please note the patient was kept in the hospital for hypertensive urgency in the setting of h er TIA and at this time stable for discharge. 2. The patient's amlodipine can be titrated further per her PCP's discretion based on her clinical p rogress. 3. Please refer to the discharge summary dictated yesterday with respect to her TIA management and p lease follow up on pending labs for secondary hypertension workup as an outpatient. 4. The patient advised to check her blood pressure at home especially when she has headache and to c heck her blood pressure in the evening as her blood pressure seems to be elevated in the evening. Al so the patient to follow up with her PCP in a week for further monitoring. Vitals noted to be stable at the time of discharge. PHYSICAL EXAMINATION: HEENT: NC/AT. Heart: S1, S2 present. Regular at the time of exam. Lungs: Clear to auscultation. Abdomen: Soft. Extremities: No edema. Neuro: A lert, oriented x3. No focal deficits. TIME SPENT: Total time spent on discharge is equal to 40 minutes. [id number]/[facility] #: [id number]
[2019-12-11 11:27] LABS: Plasma Free Metanephrine <0.20 nmol/L (<0.50); Plasma Free Normetanephrine <0.20 nmol/L (<0.90)
[2019-12-11 14:12] LABS: Renin <0.6 ng/mL/h
== END 2019-12-09 11:36 | disposition home or self-care (01) | DRG 69 ==
LOC: ED 09:00 → MEDTELE 11:28 → OBSVTOIN 12-08 17:02
PROVIDERS: ADMIT Internal Medicine; ATTEND Internal Medicine
DX: G45.9 Transient cerebral ischemic attack, unspecified (principal); K31.1 Adult hypertrophic pyloric stenosis; K31.5 Obstruction of duodenum; I10 Essential (primary) hypertension; H40.9 Unspecified glaucoma; K90.0 Celiac disease; Z79.82 Long term (current) use of aspirin; Z79.899 Other long term (current) drug therapy; Z80.1 Family history of malignant neoplasm of trachea, bronchus and lung; Z82.49 Family history of ischemic heart disease and other diseases of the circulatory system
CPT/HCPCS: 36415; 70450; 70496; 70498; 70551; 71045; 80048; 80053; 80061; 81003; 82088; 83605; 83835; 84244; 84484; 85025; 85610; 85730; 93005; 93306; 99285; A9270-GY; G0378; J0360; J1650; Q9967

== ENCOUNTER 2021-04-13 12:39 | Inpatient (IN) ==
[2021-04-13] MEDS ORDERED: NS 0.9% 1000 ml BAG 1,000 ML IV ONE (12:59)
[2021-04-13 14:22] LABS: ABS Monocytes 0.7 10^3/ul (0-0.8); ABS Neutrophils 5.3 10^3/ul (1.5-7.7); Eosinophil % 0.5 %; Hematocrit 38 % (35-47); Hemoglobin 12.9 g/dL (12.0-16.0); Lymphocyte % 14.2 %; Mean Corpuscular HGB Conc 34 g/dL (31-36); Mean Corpuscular Hemoglobin 33 pg (27-31); Mean Corpuscular Volume 97 fL (80-97); Mean Platelet Volume 8.7 fL (7.4-10.4); Platelet Count 223 10^3/uL (150-450); Red Blood Count 3.92 10^6 /uL (3.70-4.87); Red Cell Distribution Width 14 % (10-15); White Blood Count 7.1 10^3/uL (3.5-10.8)
[2021-04-13 14:35] LABS: Urine Appearance Clear; Urine Bilirubin Negative (Negative); Urine Blood 1+ (Negative); Urine Color Straw; Urine Glucose Negative (Negative); Urine Ketones Negative (Negative); Urine Nitrite Negative (Negative); Urine Protein Negative (Negative); Urine Specific Gravity 1.004 (1.002-1.030); Urine Urobilinogen Negative (Negative)
[2021-04-13 14:39] LABS: ALT 9 U/L (7-52); AST 13 U/L (13-39); Albumin 4.4 g/dL (3.2-5.2); Albumin/Globulin Ratio 1.8 (1-3); Alkaline Phosphatase 105 U/L (35-149); Anion Gap 8 mmol/L (2-11); Blood Urea Nitrogen 18 mg/dL (6-24); CO2 Carbon Dioxide 25 mmol/L (22-32); Calcium 9.9 mg/dL (8.6-10.3); Chloride 106 mmol/L (101-111); EGFR African American 59.1 (>60); EGFR Non-African American 48.8 (>60); Globulin 2.5 g/dL (2-4); Glucose 133 mg/dL (70-100); Magnesium 1.9 mg/dL (1.9-2.7); Potassium 3.5 mmol/L (3.5-5.0); Sodium 139 mmol/L (135-145); Total Protein 6.9 g/dL (6.4-8.9)
[2021-04-13 14:42] LABS: Urine Bacteria 1+ (Absent); Urine Red Blood Cell Trace(0-2/hpf) (Absent); Urine Squamous Epithelial Cell Present (Absent); Urine White Blood Cell Trace(0-5/hpf) (Absent)
[2021-04-13 14:48] LABS: Troponin I 0.06 ng/mL (<0.03)
[2021-04-13 15:11] LABS: TSH Ultra Thyroid Stim Horm 1.98 mcIU/mL (0.34-5.60)
[2021-04-13 15:32] LABS: Activated Partial Thrombo Time 24.3 seconds (26.0-38.0); INR 1.09 (0.82-1.09)
[2021-04-13] MEDS ORDERED: Iodixanol (CONTRAST) 320 MG/ML 100 ML SDV IV ONE (15:40)
[2021-04-13] MEDS ORDERED: Ondansetron 4 mg VIAL 2 MG/ML 2 ml VIAL IV PRN (17:00)
[2021-04-13 17:26] LABS: Troponin I 0.05 ng/mL (<0.03)
[2021-04-13 21:15] LABS: Troponin I 0.04 ng/mL (<0.03)
[2021-04-13] MEDS: Latanoprost 0.005% 2.5 ml BTL BOTH EYES SCH (21:24)
[2021-04-14 06:03] LABS: ABS Eosinophils 0.1 10^3/ul (0-0.6); ABS Lymphocytes 0.9 10^3/ul (1.0-4.8); ABS Monocytes 0.7 10^3/ul (0-0.8); ABS Neutrophils 4.2 10^3/ul (1.5-7.7); Eosinophil % 0.9 %; Hematocrit 33 % (35-47); Hemoglobin 11.4 g/dL (12.0-16.0); Mean Corpuscular HGB Conc 35 g/dL (31-36); Mean Corpuscular Hemoglobin 33 pg (27-31); Mean Corpuscular Volume 96 fL (80-97); Mean Platelet Volume 8.4 fL (7.4-10.4); Platelet Count 176 10^3/uL (150-450); Red Blood Count 3.42 10^6 /uL (3.70-4.87); Red Cell Distribution Width 14 % (10-15); White Blood Count 5.9 10^3/uL (3.5-10.8)
[2021-04-14 06:18] LABS: Calcium 9.1 mg/dL (8.6-10.3); EGFR Non-African American 66.1 (>60); Potassium 3.6 mmol/L (3.5-5.0)
[2021-04-14] MEDS: NS 0.9% 1000 ml BAG 1,000 ML IV SCH ×2 (10:25→20:06)
[2021-04-14] MEDS: Latanoprost 0.005% 2.5 ml BTL BOTH EYES SCH (20:06)
[2021-04-15] MEDS ORDERED: NS 0.9% 1000 ml BAG 1,000 ML IV SCH (11:00)
[2021-04-15] MEDS: NS 0.9% 1000 ml BAG 1,000 ML IV SCH (11:06)
[2021-04-15] MEDS: Latanoprost 0.005% 2.5 ml BTL BOTH EYES SCH (20:40)
[2021-04-16 05:45] LABS: ABS Eosinophils 0.1 10^3/ul (0-0.6); ABS Lymphocytes 1.3 10^3/ul (1.0-4.8); ABS Monocytes 0.9 10^3/ul (0-0.8); ABS Neutrophils 6.7 10^3/ul (1.5-7.7); Eosinophil % 0.8 %; Hematocrit 35 % (35-47); Lymphocyte % 14.9 %; Mean Corpuscular HGB Conc 34 g/dL (31-36); Mean Corpuscular Hemoglobin 33 pg (27-31); Mean Corpuscular Volume 97 fL (80-97); Platelet Count 203 10^3/uL (150-450); Red Blood Count 3.62 10^6 /uL (3.70-4.87); Red Cell Distribution Width 14 % (10-15)
[2021-04-16 06:00] LABS: Calcium 9.4 mg/dL (8.6-10.3); EGFR African American 77.9 (>60); EGFR Non-African American 64.4 (>60); Potassium 3.7 mmol/L (3.5-5.0)
[2021-04-16 12:22] VITALS: BP 116/61
== END 2021-04-16 12:15 | disposition home or self-care (01) | DRG 175 ==
LOC: ED 12:39 → MEDTELE 12:39 → OBSVTOIN 17:00 → MEDTELE 18:28
PROVIDERS: ADMIT Hospitalist; ATTEND Student in an Organized Health Care Education/Training Program

== ENCOUNTER 2022-07-09 17:31 | Observation (INO) ==
[2022-07-09 18:08] LABS: ABS Lymphocytes 1.5 10^3/ul (1.0-4.8); ABS Monocytes 0.6 10^3/ul (0-0.8); Eosinophil % 0.7 %; Hematocrit 37 % (35-47); Lymphocyte % 29.2 %; Mean Corpuscular HGB Conc 33 g/dL (31-36); Mean Corpuscular Hemoglobin 32 pg (27-31); Mean Corpuscular Volume 98 fL (80-97); Mean Platelet Volume 9.1 fL (7.4-10.4); Platelet Count 179 10^3/uL (150-450); Red Blood Count 3.72 10^6 /uL (3.70-4.87); Red Cell Distribution Width 13 % (10-15); White Blood Count 5.2 10^3/uL (3.5-10.8)
[2022-07-09] MEDS ORDERED: NS 0.9% 1000 ml BAG 1,000 ML IV ONE (18:34)
[2022-07-09 18:48] LABS: Albumin 4.4 g/dL (3.2-5.2); Albumin/Globulin Ratio 2.8 (1-3); Calcium 10.1 mg/dL (8.6-10.3); Globulin 1.6 g/dL (2-4); Magnesium 2.1 mg/dL (1.9-2.7); Potassium 4.3 mmol/L (3.5-5.0); Total Bilirubin 0.8 mg/dL (0.2-1.0); eGFR CKD-EPI 48.9 (>60)
[2022-07-09 19:01] LABS: TSH Ultra Thyroid Stim Horm 3.12 mcIU/mL (0.34-5.60)
[2022-07-09] MEDS ORDERED: Iodixanol (CONTRAST) 320 MG/ML 100 ML SDV IV ONE (19:23)
[2022-07-09 19:35] LABS: High Sensitivity Troponin 1 Hr 7 pg/mL (<15)
[2022-07-09 19:53] LABS: Urine Appearance Clear; Urine Bilirubin Negative (Negative); Urine Blood Negative (Negative); Urine Color Yellow; Urine Glucose Negative (Negative); Urine Ketones Negative (Negative); Urine Nitrite Negative (Negative); Urine Protein Negative (Negative); Urine Urobilinogen 0.2 (Negative) (Negative)
[2022-07-10] MEDS: Timolol 0.25% OPHTH.SOLN BTL BOTH EYES SCH (10:22)
[2022-07-10] MEDS ORDERED: Latanoprost 0.005% 2.5 ml BTL BOTH EYES SCH (21:00)
[2022-07-11 06:05] LABS: Calcium 9.4 mg/dL (8.6-10.3); Potassium 3.8 mmol/L (3.5-5.0); eGFR CKD-EPI 49.9 (>60)
[2022-07-11] MEDS ORDERED: Aspirin EC 81 mg TAB.EC (enteric coated) PO SCH (09:00)
[2022-07-11] MEDS: Timolol 0.25% OPHTH.SOLN BTL BOTH EYES SCH (09:39)
[2022-07-11 11:48] VITALS: BP 101/60
== END 2022-07-11 14:50 | disposition home or self-care (01) ==
LOC: ED 17:31 → EDHOLD 17:31 → SUATTDRO 19:29 → EDHOLD 07-10 15:18 → MEDTELE 07-10 15:31
PROVIDERS: ADMIT Internal Medicine; ATTEND Internal Medicine